=== PATIENT | female | born 1995 | race Caucasian/White ===

== ENCOUNTER 2016-08-22 03:51 | Emergency (ER) | payer OTHER ==
[~2016-08-22] VITALS: Ht 172.7 cm; Wt 65.1 kg
[~2016-08-22 03:51] MED LIST: CIPR500T94 PO; ONDA4TAB10 PO
[2016-08-22] MEDS ORDERED: IV NORMAL SALINE 1,000ML 1,000 ML IV SCH (03:58)
[2016-08-22] MEDS ORDERED: ONDANSETRON PF 4 MG/2 ML VIAL. IV ONE (04:00)
--- NOTE | 2016-08-22 04:02 | PHYS DOC ---
General Chief Complaint: syncope Stated Complaint: NONRESPONSIVE Time Seen by MD: 03:55 Source: patient, EMS, old records Exam Limitations: clinical condition Problems: History of Present Illness Initial Comments Pt is 6mos gestation 21/F to ED via EMS for AMS/syncope. Pt SO states that he left the house shortly before 0300 to go to [employer]. When he left the house he states pt was AOx3 no complaints. When he arrived home he found pt lying on the floor with some emesis as if she'd passed out. Pt has h/o seizure disorder and recurrant syncope which she's been dealing with past two years. EMS reports family noted pt was going to lose consciousness and they lowered her to the floor. EMS reports pt's VSS and she is slowly waking up. Pt mom in ED, she reports pt was diagnosed with UTI and anemia earlier today at her OB, FHT were 147 bpm at that visit. She was prescribed macrobid but has not yet filled the rx. ED VS: afebrile, 92, 17, 119/73, 99% RA Timing/Duration: unsure Severity: severe Modifying Factors: improves with other Associated Symptoms: syncope Allergies: Coded Allergies: No Known Drug Allergies (Unverified , 10/30/14) Past Medical History Medical History: other (seizure, recurrant syncope) Surgical History: noncontributory Psychosocial History: anxiety, attn. deficit disorder, bipolar, depression, post traumatic stress Family History Significant Family History: no pertinent family hx Social History Smoker: cigarettes Alcohol: none Drugs: none Review of Systems Constitutional: denies chills, denies fever, malaise Respiratory: denies cough, denies shortness of breath Cardiovascular: denies chest pain, syncope Gastrointestinal: see HPI nausea vomiting Genitourinary: see HPIdenies frequency, denies hematuria Musculoskeletal: denies back pain, denies joint swelling, denies neck pain Psychiatric/Neurological: see HPI Hematologic/Lymphatic: denies blood clots, denies easy bleeding, denies easy bruising Physical Exam General Appearance: WD/WN, no apparent distress Eyes: bilateral eye EOMI, bilateral eye PERRL, bilateral eye normal inspection Ear, Nose, Throat: hearing grossly normal, normal ENT inspection, normal pharynx Neck: non-tender, supple Respiratory: lungs clear, normal breath sounds Cardiovascular: normal peripheral pulses, regular rate, rhythm Gastrointestinal: normal bowel sounds, soft (gravid c/w dates, no obvious TTP) Rectal: deferred Back: no CVA tenderness, no vertebral tenderness Extremities: normal range of motion, non-tender Neurologic/Psychiatric: burlap spreader II-XII nml as tested, no motor/sensory deficits, other (after waking pt alert, AOx3, flat affect, no SI/HI) Skin: normal color, warm/dry Orders, Labs, Meds Heart Tones 140 bpm EKG: NSR 92 bpm, no acute ischemic changes noted. At 0430 pt received 0.4mg narcan IV. At 0432 RN states pt began to wake up and talk with her family. Almost immediately after waking pt AOx3 no lateralizing neurodefs. 0520: Pt mom reports pt appears to be unresponsive again. Pt protecting her airway once again unresponsive. Will repeat narcan 0.4mg IV. Rocephin 1g IV given KCL 20 meq PO and slomag 64 PO given Pertinent labs: WBC 8.8, Hb 9.1, MCV 76, K+ 3.3 (KCL 20meq given), Mg 1.6, Alb 2.5, corrected calcium 9.6, UA few SE/1-4 WBC/Tr LE, etoh <10 0603: I discussed inpatient treatment and transfer to OP with her OB Dr Milagro Gonzalez. Pt requests d/c home, will f/u with her OB upon opening in a few hours. She will not be alone, states she feels better/normal. IMPRESSIONS: Recurrant seizure/syncope Microcytic anemia Hypomagnesemia Moderate Malnutrition UTI Hypokalemia incidental Departure Time of Disposition: 06:04 Disposition: 01 HOME, SELF-CARE Diagnosis: syncope, hypokalemia, anemia, UTI Condition: IMPROVED Patient Instructions: Anemia, FAQs, Hypokalemia-Brief, Syncope, Gexm-vd-Kuni Additional Instructions: Rest, no strenuous activity. Take meds as prescribed. Aggressive hydration with gatorade, water. Stay with another adult or have someone check on you frequently. No driving or operating machinery. Call Dr Gonzalez office upon opening to schedule same day evaluation later today. Return to ED with new or changing symptoms. NIKO NASH DO Aug 22, 2016 04:02
[2016-08-22] MEDS ORDERED: NALOXONE 0.4 MG/ML VIAL. IV ONE ×2 (04:30→05:30)
[2016-08-22 05:25] LABS: BASO % 0 % (0-3); EOS # 0.1 x10^3/uL (0.0-0.7); EOS % 1 % (0-3); HEMATOCRIT 28.9 % (36.0-47.0); HEMOGLOBIN 9.1 g/dL (12.0-15.5); LYMPH % 22 % (24-48); MEAN CORPUSCULAR HEMOGLOBIN 24 pg (25-35); MEAN CORPUSCULAR HGB CONC 32 g/dL (31-37); MEAN CORPUSCULAR VOLUME 76 fL (79-100); MONO # 0.6 x10^3/uL (0.0-1.1); MONO % 7 % (0-9); NEUT # 6.1 x10^3uL (1.8-7.7); NEUT % 70 % (31-73); PLATELET COUNT 346 x10^3/uL (140-400); WHITE BLOOD COUNT 8.8 x10^3/uL (4.0-11.0)
[2016-08-22 05:27] LABS: ALBUMIN 2.5 g/dL (3.4-5.0); CALCIUM 8.4 mg/dL (8.5-10.1); CREATININE 0.5 mg/dL (0.6-1.0); DIRECT BILIRUBIN 0.1 mg/dL (0.0-0.2); GFR 157.3; MAGNESIUM 1.6 mg/dL (1.8-2.4); POTASSIUM 3.3 mmol/L (3.5-5.1); TOTAL BILIRUBIN 0.2 mg/dL (0.2-1.0); TOTAL PROTEIN 6.6 g/dL (6.4-8.2)
[2016-08-22 05:30] LABS: BARBITURATES NEG (NEG); BENZODIAZEPINES NEG (NEG); CANNABINOIDS NEG (NEG); COCAINE NEG (NEG); METHADONE NEG (NEG); OPIATES NEG (NEG); PHENCYCLIDINE NEG (NEG)
[2016-08-22 05:31] LABS: BILIRUBIN,URINE NEG (NEG); CLARITY,URINE HAZY; COLOR,URINE STRAW; GLUCOSE,URINE NEG (NEG); UROBILINOGEN,URINE 0.2 mg/dL (0.2 mg/dL)
[2016-08-22 05:32] LABS: BACTERIA,URINE MOD /HPF (0-FEW); NITRITE,URINE NEG (NEG); RBC,URINE 0 /HPF (0-2); SQUAMOUS EPITHELIAL CELL,UR FEW /LPF
[2016-08-22 05:38] LABS: AMPHETAMINE/METHAMPHETAMINE NEG (NEG)
[2016-08-22] MEDS ORDERED: IV NORMAL SALINE 50ML 50 ML ONE (05:44)
[2016-08-22] MEDS ORDERED: CEFTRIAXONE SODIUM 1 GM VIAL IV ONE (05:44)
[2016-08-22] MEDS ORDERED: CEFTRIAXONE SODIUM 1 GM in IV NORMAL SALINE 50ML 50 ML IV ONE (05:45)
[2016-08-22] MEDS ORDERED: POTASSIUM CHLORIDE 20 MEQ/15 ML ORAL LIQUID. PO ONE (05:45)
[2016-08-22 05:52] VITALS: BP 109/66
[2016-08-22] MEDS ORDERED: PHEN-318 PO (06:36)
[2016-08-22] MEDS ORDERED: PHENAZOPYRIDINE 200 MG TABLET. ONE (06:37)
[2016-08-22] MEDS ORDERED: PHENAZOPYRIDINE 200 MG TABLET. PO ONE (06:45)
[2016-08-22] MEDS ORDERED: MAGNESIUM CHLORIDE ER 64 MG TABLET.ER PO SCH (09:00)
--- NOTE | 2016-08-22 10:28 | EKG ---
[address] [address] Test Date: 2016-08-22 Test Time: 04:06:57 Pat Name: BANG PARKER Department: Room: Gender: F Director Of Medical Education: DAVID : 1995 Requested By: NIKO NASH Order Number: [id number] Reading MD: Measurements Intervals [place] Rate: 92 P: 34 MN: 174 QRS: 70 QRSD: 82 T: 44 QT: 340 QTc: 425 Interpretive Statements SINUS RHYTHM NO SPECIFIC ECG ABNORMALITIES RI6.01 Unconfirmed report No previous ECG available for comparison
== END 2016-08-22 06:47 | disposition home or self-care (01) ==
LOC: ER 03:51
DX: O26.892 Other specified pregnancy related conditions, second trimester (principal); G40.909 Epilepsy, unspecified, not intractable, without status epilepticus; R55 Syncope and collapse; D50.9 Iron deficiency anemia, unspecified; E83.42 Hypomagnesemia; N39.0 Urinary tract infection, site not specified; E44.0 Moderate protein-calorie malnutrition; E87.6 Hypokalemia; F31.9 Bipolar disorder, unspecified; F32.9 Major depressive disorder, single episode, unspecified; F41.9 Anxiety disorder, unspecified; F43.10 Post-traumatic stress disorder, unspecified; F17.210 Nicotine dependence, cigarettes, uncomplicated; Z3A.24 24 weeks gestation of pregnancy
CPT/HCPCS: 36415; 51702; 80048; 80076; 80305; 80320; 81001; 82550; 83605; 83735; 84484; 84702; 85027; 87086; 93005; 96361; 96365; 96375; 99285; J0696; J2310; J2405; G0480; G0481; J7030

== ENCOUNTER 2016-12-17 11:06 | Emergency (ER) | payer OTHER ==
[~2016-12-17] VITALS: Ht 165.1 cm; Wt 63.5 kg
[~2016-12-17 11:06] MED LIST changes: +PHEN-318 PO
[2016-12-17 11:33] LABS: BASO % 1 % (0-3); CREATININE 0.9 mg/dL (0.6-1.0); EOS # 0.1 x10^3/uL (0.0-0.7); EOS % 1 % (0-3); GFR 79.8; HEMATOCRIT 36.8 % (36.0-47.0); HEMOGLOBIN 11.3 g/dL (12.0-15.5); LYMPH # 1.6 x10^3/uL (1.0-4.8); LYMPH % 19 % (24-48); MEAN CORPUSCULAR HEMOGLOBIN 23 pg (25-35); MEAN CORPUSCULAR HGB CONC 31 g/dL (31-37); MEAN CORPUSCULAR VOLUME 74 fL (79-100); MONO # 0.3 x10^3/uL (0.0-1.1); MONO % 4 % (0-9); NEUT # 6.2 x10^3uL (1.8-7.7); NEUT % 76 % (31-73); PLATELET COUNT 317 x10^3/uL (140-400); POTASSIUM 3.7 mmol/L (3.5-5.1); RED BLOOD COUNT 4.98 x10^6/uL (3.50-5.40); WHITE BLOOD COUNT 8.2 x10^3/uL (4.0-11.0)
[2016-12-17] MEDS ORDERED: IV NORMAL SALINE 1,000 ML BAG IV ONE (12:00)
[2016-12-17] MEDS ORDERED: ONDANSETRON PF 4 MG/2 ML VIAL. IV ONE (12:00)
[2016-12-17] MEDS ORDERED: MORPHINE SULFATE 2 MG/ML DISP.SYRIN. IV ONE (12:10)
[2016-12-17 12:30] LABS: ANISOCYTOSIS SLIGHT; HYPOCHROMIA SLIGHT; MICROCYTOSIS SLIGHT; PLT ESTIMATE ADEQUATE (ADEQUATE)
--- NOTE | 2016-12-17 14:02 | RAD ---
EXAM: Pelvic ultrasound. HISTORY: Pelvic pain and vaginal bleeding. 8 weeks . COMPARISON: None. FINDINGS: Sonographic evaluation of the pelvis was performed transabdominally and transvaginally. The uterus is anteverted and measures 11.7 x 5.6 x 4.2 cm. The endometrial stripe measures only 4.5 mm. No endometrial mass is identified. Doppler images of the endometrium are not included. The right ovary measures 3.9 x 3.8 x 2.3 cm. The left measures 4.4 x 2.9 x 2.9 cm. There are follicular cysts bilaterally. There is normal flow bilaterally. IMPRESSION: 1. No endometrial mass or thickening is appreciable. Doppler of the endometrium could increase sensitivity for retained products of conception if there is persistent concern.
--- NOTE | 2016-12-17 14:32 | PHYS DOC ---
Past History Past Medical History: Asthma, Hypotension, Seizure Past Surgical History: Other Smoking: Non-smoker Alcohol Use: None Drug Use: Marijuana Adult General Chief Complaint Chief Complaint: MULTIPLE COMPLAINTS HPI HPI Patient is a 21 year old F who presents with abdominal pain and vaginal bleeding after having had a vaginal delivery 8 weeks ago. Yamilet states that she has had intermittent bleeding since delivery. She also describes abdominal cramping since delivery. She states that after delivery her hemoglobin was 5.5. Transfusion was discussed at that time however she was not transfused. She has been taking iron regularly. She also does have a seizure disorder for which she was prescribed Keppra. She was initially started on Keppra just prior to delivery. She has not seen a neurologist since starting Keppra. She has also not followed up with her OB because she was unable to make her 6 week appointment. Review of Systems Review of Systems Constitutional: Denies fever or chills [] Eyes: Denies change in visual acuity, redness, or eye pain [] HENT: Denies nasal congestion or sore throat [] Respiratory: Denies cough or shortness of breath [] Cardiovascular: No additional information not addressed in HPI [] GI: Denies abdominal pain, nausea, vomiting, bloody stools or diarrhea [] : Denies dysuria or hematuria [] Musculoskeletal: Denies back pain or joint pain [] Integument: Denies rash or skin lesions [] Neurologic: Denies headache, focal weakness or sensory changes [] Endocrine: Denies polyuria or polydipsia [] Family History Family History Noncontributory Current Medications Current Medications Medications (Trade) Dose Ordered Sig/[facility] Start Time Stop Time Status Last Admin Dose Admin Morphine Sulfate (Morphine 2mg Syringe) 2 mg 1X ONCE 12/17/16 12:10 12/17/16 12:10 DC 12/17/16 11:47 2 MG Ondansetron HCl (Zofran) 4 mg 1X ONCE 12/17/16 12:00 12/17/16 12:01 DC 12/17/16 11:47 4 MG Sodium Chloride (Iv Sodium Chloride 0.9% 1,000ml) 1,000 ml 1X ONCE 12/17/16 12:00 12/17/16 12:01 DC 12/17/16 11:46 1,000 ML Allergies Allergies Coded Allergies Type Severity Reaction Last Updated Verified No Known Drug Allergies 10/30/14 No Physical Exam Physical Exam Constitutional: Well developed, well nourished, no acute distress, non-toxic appearance. [] HENT: Normocephalic, atraumatic, bilateral external ears normal, oropharynx moist, no oral exudates, nose normal. [] Eyes: PERRLA, EOMI, conjunctiva normal, no discharge. [] Neck: Normal range of motion, no tenderness, supple, no stridor. [] Cardiovascular:Heart rate regular rhythm, no murmur [] Lungs & Thorax: Bilateral breath sounds clear to auscultation [] Abdomen: Bowel sounds normal, soft, no tenderness, no masses, no pulsatile masses. [] Skin: Warm, dry, no erythema, no rash. [] Back: No tenderness, no CVA tenderness. [] Extremities: No tenderness, no cyanosis, no clubbing, ROM intact, no edema. [] Neurologic: Alert and oriented X 3, normal motor function, normal sensory function, no focal deficits noted. [] Psychologic: Affect normal, judgement normal, mood normal. [] Current Patient Data Vital Signs Vital Signs Date Time Temp Pulse Resp B/P (MAP) Pulse Ox O2 Delivery O2 Flow Rate FiO2 12/17/16 14:10 58 20 84/47 (59) 95 Room Air 12/17/16 11:06 98.7 Lab Results Laboratory Tests Test 12/17/16 11:10 White Blood Count 8.2 x10^3/uL (4.0-11.0) Red Blood Count 4.98 x10^6/uL (3.50-5.40) Hemoglobin 11.3 g/dL (12.0-15.5) L Hematocrit 36.8 % (36.0-47.0) Mean Corpuscular Volume 74 fL (79-100) L Mean Corpuscular Hemoglobin 23 pg (25-35) L Mean Corpuscular Hemoglobin Concent 31 g/dL (31-37) Red Cell Distribution Width 19.0 % (11.5-14.5) H Platelet Count 317 x10^3/uL (140-400) Neutrophils (%) (Auto) 76 % (31-73) H Lymphocytes (%) (Auto) 19 % (24-48) L Monocytes (%) (Auto) 4 % (0-9) Eosinophils (%) (Auto) 1 % (0-3) Basophils (%) (Auto) 1 % (0-3) Neutrophils # (Auto) 6.2 x10^3uL (1.8-7.7) Lymphocytes # (Auto) 1.6 x10^3/uL (1.0-4.8) Monocytes # (Auto) 0.3 x10^3/uL (0.0-1.1) Eosinophils # (Auto) 0.1 x10^3/uL (0.0-0.7) Basophils # (Auto) 0.0 x10^3/uL (0.0-0.2) Platelet Estimate Adequate (ADEQUATE) Hypochromasia Slight Anisocytosis Slight Microcytosis Slight Sodium Level 142 mmol/L (136-145) Potassium Level 3.7 mmol/L (3.5-5.1) Chloride Level 106 mmol/L (98-107) Carbon Dioxide Level 26 mmol/L (21-32) Anion Gap 10 (6-14) Blood Urea Nitrogen 11 mg/dL (7-20) Creatinine 0.9 mg/dL (0.6-1.0) Estimated GFR (Cockcroft-Gault) 79.8 Glucose Level 88 mg/dL (70-99) Calcium Level 9.0 mg/dL (8.5-10.1) Radiology/Procedures Radiology/Procedures Ultrasound PELVIS Impressions: Radiology report reviewed No endometrial mass or thickening is appreciated. No signs of retained products of conception. Course & Med Decision Making Course & Med Decision Making Pertinent Labs and Imaging studies reviewed. (See chart for details) Dragon Disclaimer Dragon Disclaimer This chart was dictated in whole or in part using Voice Recognition software in a busy, high-work load, and often noisy Emergency Department environment. It may contain unintended and wholly unrecognized errors or omissions. Departure Departure: Impression: Primary Impression: Abdominal pain Disposition: 01 HOME, SELF-CARE Condition: STABLE Referrals: ABHI GUILLEN APRN (PCP) Patient Instructions: Abdominal Pain Additional Instructions: Yamilet was seen in the ED for abdominal pain and vaginal bleeding 8weeks out from vaginal delivery. No emergency medical condition was found during the history and physical exam. She did have normal labs and a normal US. She was advised to follow up with her primary care doctor as soon as possible for further management Problem Qualifiers Primary Impression: Abdominal pain Abdominal location: unspecified location Qualified Codes: R10.9 - Unspecified abdominal pain MELO MICHELLE MD Dec 17, 2016 14:32
[2016-12-17] MEDS ORDERED: IV NORMAL SALINE 1,000ML 1,000 ML IV ONE (14:45)
[2016-12-17 15:30] VITALS: BP 94/46
== END 2016-12-17 16:00 | disposition home or self-care (01) ==
LOC: ER 11:06
DX: R10.9 Unspecified abdominal pain (principal); N93.9 Abnormal uterine and vaginal bleeding, unspecified; J45.909 Unspecified asthma, uncomplicated; F12.10 Cannabis abuse, uncomplicated
CPT/HCPCS: 36415; 76830; 76856; 80048; 85008; 85027; 96361; 96374; 96375; 99285; J2270; J2405; J7030

== ENCOUNTER 2017-01-27 14:00 | Emergency (ER) | payer OTHER ==
[~2017-01-27] VITALS: Ht 165.1 cm; Wt 65.1 kg
[2017-01-27] MEDS ORDERED: FLUT12AE IH (14:36)
[2017-01-27] MEDS ORDERED: FLUT9.9S NS (14:36)
--- NOTE | 2017-01-27 14:36 | PHYS DOC ---
Past History Past Medical History: Asthma, Hypotension, Seizure Past Surgical History: Other Smoking: Non-smoker Alcohol Use: None Drug Use: Marijuana Adult General Chief Complaint Chief Complaint: COUGH HPI HPI Patient is a 21 year old F who presents with cough and nasal congestion over the past 2-3 days. Yamilet feels that she has had constant cough that is occasionally productive and associated with moderate nasal congestion and postnasal drip. She denies fevers but does feel that she has had some chills. She has had 1 coughing spell that resulted in vomiting. She has no exacerbating or alleviating factors. Review of Systems Review of Systems Constitutional: Negative except history of present illness Eyes: Denies change in visual acuity, redness, or eye pain [] HENT: Negative except history of present illness Respiratory: Denies shortness of breath [] Cardiovascular: No additional information not addressed in HPI [] GI: Denies abdominal pain, nausea, vomiting, bloody stools or diarrhea [] : Denies dysuria or hematuria [] Musculoskeletal: Denies back pain or joint pain [] Integument: Denies rash or skin lesions [] Neurologic: Denies headache, focal weakness or sensory changes [] Endocrine: Denies polyuria or polydipsia [] Family History Family History Noncontributory Current Medications Current Medications Medications reviewed Allergies Allergies Allergies Coded Allergies Type Severity Reaction Last Updated Verified No Known Drug Allergies 10/30/14 No Physical Exam Physical Exam Constitutional: Well developed, well nourished, no acute distress, non-toxic appearance. [] HENT: Normocephalic, atraumatic, bilateral external ears normal, moderate bilateral nasal congestion with mild mucous noted Eyes: PERRLA, EOMI, conjunctiva normal, no discharge. [] Neck: Normal range of motion, no tenderness, supple, no stridor. [] Cardiovascular:Heart rate regular rhythm, no murmur [] Lungs & Thorax: Bilateral breath sounds clear to auscultation [] Abdomen: Bowel sounds normal, soft, no tenderness, no masses, no pulsatile masses. [] Skin: Warm, dry, no erythema, no rash. [] Neurologic: Alert and oriented X 3, normal motor function, normal sensory function, no focal deficits noted. [] Psychologic: Affect normal, judgement normal, mood normal. [] Current Patient Data Vital Signs Vital Signs Date Time Temp Pulse Resp B/P (MAP) Pulse Ox O2 Delivery O2 Flow Rate FiO2 01/27/17 14:00 98.6 103 18 97 Room Air Radiology/Procedures Radiology/Procedures Chest x-ray Impressions: No acute disease Course & Med Decision Making Course & Med Decision Making Pertinent Labs and Imaging studies reviewed. (See chart for details) Dragon Disclaimer Dragon Disclaimer This chart was dictated in whole or in part using Voice Recognition software in a busy, high-work load, and often noisy Emergency Department environment. It may contain unintended and wholly unrecognized errors or omissions. Departure Departure: Impression: Primary Impression: Bronchitis Additional Impression: Upper respiratory infection Disposition: HOME, SELF-CARE Condition: STABLE Referrals: PCP,NO (PCP) Patient Instructions: Acute Bronchitis, Upper Respiratory Infection, Adult Additional Instructions: Jazmyne seen in the emergency department for nasal congestion and cough. No emergency medical condition was found on history or physical exam. She did have a normal chest x-ray. Her symptoms are most consistent with bronchitis and upper extremity infection. She was advised to use nasal saline rinses regularly and was given a nasal steroids. She was also given an inhaled steroid. She was advised to follow-up with her primary care doctor in the next 5-7 days for further management. She was also advised return to the emergency room if she develops now worsening symptoms Scripts Fluticasone Propionate (FLOVENT 110MCG HFA) 12 Gm Aer.w.adap 2 PUFF IH BID for 7 Days, #1 INHALER 2 Refills Prov: MELO MICHELLE MD 01/27/17 Fluticasone Propionate (Flonase Allergy Relief) 9.9 Ml [place].susp 1 SPRAYS NS BID for 7 Days, BOTTLE Prov: MELO MICHELLE MD 01/27/17 Problem Qualifiers Additional Impression: Upper respiratory infection URI type: unspecified viral URI Qualified Codes: J06.9 - Acute upper respiratory infection, unspecified; B97.89 - Other viral agents as the cause of diseases classified elsewhere MELO MICHELLE MD Jan 27, 2017 14:36
--- NOTE | 2017-01-27 14:47 | RAD ---
Exam performed: 2 views of the chest. Indication: cough Date of Service:01/27/2017 4:28 PM . Comparison : 2 view chest from December 14 Findings: PA and lateral radiographs of the chest reveal a normal cardiomediastinal contour. The lungs are clear. No pleural fluid is seen. The visualized osseous structures are unremarkable. Impression: Radiographically normal chest.
[2017-01-27 15:09] VITALS: BP 124/64
== END 2017-01-27 15:00 | disposition home or self-care (01) ==
LOC: ER 14:00
DX: J06.9 Acute upper respiratory infection, unspecified (principal); J40 Bronchitis, not specified as acute or chronic; J45.909 Unspecified asthma, uncomplicated
CPT/HCPCS: 71020; 99284

== ENCOUNTER 2017-02-14 19:14 | Emergency (ER) | payer OTHER ==
[~2017-02-14 19:14] MED LIST changes: +FLUT12AE IH; +FLUT9.9S NS
[2017-02-14 19:17] VITALS: BP 105/61
[2017-02-14] MEDS ORDERED: HYDROcodone/APAP 5/325MG 1 TAB TABLET PO ONE (19:30)
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
[2017-02-14] MEDS ORDERED: HYDR-2758 PO (21:46)
[2017-02-14] MEDS ORDERED: NAPR275T59 PO (21:46)
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
== END 2017-02-14 21:50 | disposition home or self-care (01) ==
LOC: ER 19:14
DX: S00.03XA Contusion of scalp, initial encounter (principal); S00.83XA Contusion of other part of head, initial encounter; S10.93XA Contusion of unspecified part of neck, initial encounter; S20.211A Contusion of right front wall of thorax, initial encounter; S39.92XA Unspecified injury of lower back, initial encounter; J45.909 Unspecified asthma, uncomplicated; Y04.0XXA Assault by unarmed brawl or fight, initial encounter; Y93.89 Activity, other specified; Y92.89 Other specified places as the place of occurrence of the external cause; Y99.8 Other external cause status
CPT/HCPCS: 70450; 70486; 71101; 72100; 99284-25

== ENCOUNTER 2017-04-25 18:56 | Emergency (ER) | payer OTHER ==
[~2017-04-25] VITALS: Ht 165.1 cm; Wt 65.1 kg
[2017-04-25 18:56] VITALS: BP 99/51
[~2017-04-25 18:56] MED LIST changes: +HYDR-2758 PO; +NAPR275T59 PO
--- NOTE | 2017-04-25 19:29 | ED.ADGEN ---
Past History Past Medical History: No Pertinent History, Other Past Surgical History: No Surgical History Smoking: Non-smoker Alcohol Use: Occasionally Drug Use: None Adult General Chief Complaint Chief Complaint " It go caught in the freeze door.." HPI HPI Patient is a 21 year old female who presents with above hx and complaints of crush type injury to right fifth finger after caught in doorjamb of freezer door. Does have a contusion to finger. There is edema. Does have range of motion. Range of motion does elicit pain. Distal neurovascular intact. No other injury to hand noted. Patient is right-hand dominant. Patient works at [employer]. Review of Systems Review of Systems Constitutional: Denies fever or chills [] Eyes: Denies change in visual acuity, redness, or eye pain [] HENT: Denies nasal congestion or sore throat [] Respiratory: Denies cough or shortness of breath [] Cardiovascular: No additional information not addressed in HPI [] GI: Denies abdominal pain, nausea, vomiting, bloody stools or diarrhea [] : Denies dysuria or hematuria [] Musculoskeletal: Denies back pain or joint pain []right fifth finger injury Integument: Denies rash or skin lesions [] Neurologic: Denies headache, focal weakness or sensory changes [] Endocrine: Denies polyuria or polydipsia [] All other systems were reviewed and found to be within normal limits, except as documented in this note. Family History Family History Noncontributory Current Medications Current Medications Current Medications Medications (Trade) Dose Ordered Sig/[facility] Start Time Stop Time Status Last Admin Dose Admin Ibuprofen (Motrin) 600 mg 1X ONCE 04/25/17 20:15 04/25/17 20:15 DC 04/25/17 20:06 600 MG See nursing for home meds Allergies Allergies Allergies Coded Allergies Type Severity Reaction Last Updated Verified No Known Drug Allergies 10/30/14 No Physical Exam Physical Exam Constitutional: Well developed, well nourished, moderate distress, non-toxic appearance. [] HENT: Normocephalic, atraumatic, bilateral external ears normal, oropharynx moist, no oral exudates, nose normal. [] Eyes: PERRLA, EOMI, conjunctiva normal, no discharge. [] Neck: Normal range of motion, no tenderness, supple, no stridor. [] Cardiovascular:Heart rate regular rhythm, no murmur [] Lungs & Thorax: Bilateral breath sounds equal at apexes with scattered wheezes auscultation [] Abdomen: Bowel sounds normal, soft, no tenderness, no masses, no pulsatile masses. [] Skin: Warm, dry, no erythema, no rash. [] Back: No tenderness, no CVA tenderness. [] Extremities: No tenderness, no cyanosis, no clubbing, ROM intact, no edema. [] Fifth finger as per history of present illness Neurologic: Alert and oriented X 3, normal motor function, normal sensory function, no focal deficits noted. [] Psychologic: Affect anxious,, judgement normal, mood normal. [] Current Patient Data Vital Signs Vital Signs Date Time Temp Pulse Resp B/P (MAP) Pulse Ox O2 Delivery O2 Flow Rate FiO2 04/25/17 18:56 99.0 95 16 100 Room Air Lab Results Laboratory Tests Test 04/25/17 20:39 POC Urine HCG, Qualitative hcg negative (Negative) EKG EKG [] Radiology/Procedures Radiology/Procedures I interpretation x-ray shows edema of finger. No obvious dislocation or displaced fracture.[] Course & Med Decision Making Course & Med Decision Making Pertinent Labs and Imaging studies reviewed. (See chart for details). Bernardo tape finger as splint to 4th finger. Ice, elevation, rest, and Tylenol and ibuprofen for pain. Must keep follow-up workmen comp. Return if any concerns. [] Final Impression Final Impression 1. Finger[] 5th Rt. Crush Injury Problems: Dragon Disclaimer Dragon Disclaimer This electronic medical record was generated, in whole or in part, using a voice recognition dictation system. EMILIA MASCORRO MD Apr 25, 2017 19:29
[2017-04-25] MEDS ORDERED: IBUPROFEN 600 MG TABLET. PO ONE (20:15)
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
== END 2017-04-25 20:10 | disposition home or self-care (01) ==
LOC: ER 18:56
DX: S60.051A Contusion of right little finger without damage to nail, initial encounter (principal); W23.0XXA Caught, crushed, jammed, or pinched between moving objects, initial encounter; Y93.89 Activity, other specified; Y99.8 Other external cause status; Y92.89 Other specified places as the place of occurrence of the external cause
CPT/HCPCS: 73130; 81025; 99284

== ENCOUNTER 2017-07-07 15:36 | Emergency (ER) | payer OTHER ==
[2017-07-07 15:45] VITALS: BP 107/59
--- NOTE | 2017-07-07 16:21 | PHYS DOC ---
Past History Past Medical History: No Pertinent History Past Surgical History: No Surgical History Smoking: Non-smoker Alcohol Use: None Drug Use: None Adult General Chief Complaint Chief Complaint: FLU SYMPTOM HPI HPI Patient is a 21 year old female who presents with with complaint of cough and nasal congestion over the past 3 days. The patient states that her child had similar symptoms prior to her onset. Patient states that her child was treated for an upper respiratory infection. Patient states that her cough is worse in the morning and before bedtime. Patient has been using [id number] cough medication with no improvement in symptoms. Patient states that she has noticed increased hoarseness to her voice. Patient denies any difficulty with swallowing and denies any shortness of breath. The patient was sent home from her place of work due to her symptoms. The patient states that she was unable to obtain an appointment from her primary doctor and she was instructed to come to the emergency department for medical evaluation. Review of Systems Review of Systems Constitutional: Chills[] Eyes: Denies change in visual acuity, redness, or eye pain [] HENT: Nasal congestion, sore throat[] Respiratory: Cough, denies shortness of breath[] Cardiovascular: Denies chest pain or edema[] GI: Denies abdominal pain, nausea, vomiting, bloody stools or diarrhea [] : Denies dysuria or hematuria [] Musculoskeletal: Denies back pain or joint pain [] Integument: Denies rash or skin lesions [] Neurologic: Denies headache, focal weakness or sensory changes [] All other systems were reviewed and found to be within normal limits, except as documented in this note. Allergies Allergies Allergies Coded Allergies Type Severity Reaction Last Updated Verified No Known Drug Allergies 10/30/14 No Physical Exam Physical Exam Constitutional: Alert, afebrile, appears in mild discomfort. [] HENT: Normocephalic, atraumatic, bilateral external ears normal, oropharynx moist, no oral exudates, nose thick rhinorrhea. [] Eyes: PERRLA, EOMI, conjunctiva normal, no discharge. [] Neck: Normal range of motion, no tenderness, supple, no stridor. [] Cardiovascular:Heart rate regular rhythm, no murmur [] Lungs & Thorax: Bilateral breath sounds clear to auscultation [] Abdomen: Bowel sounds normal, soft, no tenderness, no masses, no pulsatile masses. [] Skin: Warm, dry, no erythema, no rash. [] Back: No tenderness, no CVA tenderness. [] Extremities: No tenderness, no cyanosis, no clubbing, ROM intact, no edema. [] Neurologic: Alert and oriented X 3, normal motor function, normal sensory function, no focal deficits noted. [] Current Patient Data Vital Signs Vital Signs Date Time Temp Pulse Resp B/P (MAP) Pulse Ox O2 Delivery O2 Flow Rate FiO2 07/07/17 15:45 97.6 94 18 98 Room Air Lab Results Not performed EKG EKG Not performed[] Radiology/Procedures Radiology/Procedures Not performed[] Course & Med Decision Making Course & Med Decision Making Pertinent Labs and Imaging studies reviewed. (See chart for details) The patient's symptoms appear consistent with an upper respiratory infection. Patient was provided with a work note and instructed to rest, hydrate, and use warm moist air to help with congestion as well as humidifier at nighttime. Advised to continue with Mucinex D [id number] for treatment of cough and ibuprofen [id number] for treatment of sore throat. Advised follow-up with primary doctor in 2 days for reevaluation and return emergency department for any worsening symptoms. Patient voiced understanding and in agreement with treatment plan. Dragon Disclaimer Dragon Disclaimer This electronic medical record was generated, in whole or in part, using a voice recognition dictation system. Departure Departure: Impression: Primary Impression: Upper respiratory infection Disposition: HOME, SELF-CARE Condition: STABLE Referrals: ABHI GUILLEN APRN (PCP) Patient Instructions: Upper Respiratory Infection, Adult Additional Instructions: Follow-up with your primary doctor in 2 days for reevaluation. Return to emergency department for any worsening symptoms. Problem Qualifiers Primary Impression: Upper respiratory infection URI type: unspecified URI Qualified Codes: J06.9 - Acute upper respiratory infection, unspecified COURT OLSEN MD Jul 07, 2017 16:20
== END 2017-07-07 16:24 | disposition home or self-care (01) ==
LOC: ER 15:36
DX: J06.9 Acute upper respiratory infection, unspecified (principal)
CPT/HCPCS: 99281

== ENCOUNTER 2017-07-20 22:45 | Emergency (ER) | payer OTHER ==
[~2017-07-20] VITALS: Ht 165.1 cm; Wt 65.1 kg
[2017-07-20 22:45] VITALS: BP 121/51
--- NOTE | 2017-07-20 22:52 | ED.ADGEN ---
Past History Past Medical History: No Pertinent History Past Surgical History: No Surgical History Smoking: Non-smoker Alcohol Use: None Drug Use: None Adult General Chief Complaint Chief Complaint " I twisted my Rt. ankle walking home... It inverted .. and now it hurts.. and I also I have anxiety. disorder.. and I ve had this constant sternal pain the past two weeks..." HPI HPI Patient is a 21 year old female who presents with above complaints of pain in Rt ankle after inversion walking home. No upper leg tenderness. No other injury. Distal neurovascular intact. Pain localized to malleolus bilaterally. Some anterior drawer laxity. Patient's chest pain is midsternal and has been constant for more than 2 weeks. No change in deep breaths or cough. Patient does smoke. Patient reports history of anxiety disorder. Patient denies any history of DVTs or pulmonary embolisms with her family members. Patient denies any trauma. Review of Systems Review of Systems Constitutional: Denies fever or chills [] Eyes: Denies change in visual acuity, redness, or eye pain [] HENT: Denies nasal congestion or sore throat [] Respiratory: Denies cough or shortness of breath [] Cardiovascular: No additional information not addressed in HPI [] GI: Denies abdominal pain, nausea, vomiting, bloody stools or diarrhea [] : Denies dysuria or hematuria [] Musculoskeletal: Denies back pain or joint pain []except complaints of right ankle pain Integument: Denies rash or skin lesions [] Neurologic: Denies headache, focal weakness or sensory changes [] Endocrine: Denies polyuria or polydipsia [] All other systems were reviewed and found to be within normal limits, except as documented in this note. Family History Family History Noncontributory Current Medications Current Medications Current Medications Medications (Trade) Dose Ordered Sig/Reynaldo Start Time Stop Time Status Last Admin Dose Admin Hydrocodone Bitartrate/ Ibuprofen (Vicoprofen 7.5-200) 2 tab 1X ONCE 07/20/17 23:30 07/20/17 23:31 DC 07/20/17 23:30 2 TAB Oxycodone/ Acetaminophen (Percocet 10/325) 1 tab 1X ONCE 07/20/17 23:45 07/20/17 23:46 DC 07/20/17 23:45 1 TAB See nursing for home meds Allergies Allergies Allergies Coded Allergies Type Severity Reaction Last Updated Verified No Known Drug Allergies 10/30/14 No Physical Exam Physical Exam Constitutional: Well developed, well nourished, moderately acute distress, non- toxic appearance. [] HENT: Normocephalic, atraumatic, bilateral external ears normal, oropharynx moist, no oral exudates, nose normal. [] Eyes: PERRLA, EOMI, conjunctiva normal, no discharge. [] Neck: Normal range of motion, no tenderness, supple, no stridor. [] Cardiovascular:Heart rate regular rhythm, no murmur [] Lungs & Thorax: Bilateral breath sounds equal few scattered wheezes on auscultation []mild sternal tenderness on palpation Abdomen: Bowel sounds normal, soft, no tenderness, no masses, no pulsatile masses. [] Skin: Warm, dry, no erythema, no rash. [] Back: No tenderness, no CVA tenderness. [] Extremities: Right ankle tenderness, no cyanosis, no clubbing, ROM intact, right ankle edema. [] No cording in legs noted. No upper leg tenderness. Negative foot squeeze. Mild laxity on anterior drawer,. Refill less than 2 seconds. Neurologic: Alert and oriented X 3, normal motor function, normal sensory function, no focal deficits noted. [] Psychologic: Affect very anxious, judgement normal, mood normal. [] Current Patient Data Lab Results Laboratory Tests Test 07/20/17 23:06 POC Troponin I 0.00 ng/ml (<0.08) EKG EKG My interpretation of EKG shows sinus tachycardia and 15 bpm. No findings acute STEMI of contralateral changes.- ( EKG was done at time of blood draws)[] Monitor prior blood draw= NSR at 70-80 bpm Radiology/Procedures Radiology/Procedures Interpretation of ankle x-ray shows mild edema. No obvious fracture or dislocation.[] Course & Med Decision Making Course & Med Decision Making Pertinent Labs and Imaging studies reviewed. (See chart for details). Ice, elevation, rest, splint, take tylenol and Ibuprofen for pain. Stop smoking. Follow up with primary. Return if any concerns. Re-xray in 2 weeks if no improvement. Distal neurovascular intact after splinting. [] Final Impression Final Impression 1. Sprain Rt ankle 2. Hx of Anxiety 3. Sternal Chest pain[] Problems: Dragon Disclaimer Dragon Disclaimer This electronic medical record was generated, in whole or in part, using a voice recognition dictation system. EMILIA MASCORRO MD Jul 20, 2017 22:52
--- NOTE | 2017-07-20 23:14 | EKG ---
[address] [address] Test Date: 2017-07-20 Test Time: 23:01:44 Pat Name: BANG PARKER Department: Room: Gender: F Tech Intern: : 1995 Requested By: EMILIA MASCORRO Order Number: [id number] Reading MD: Erlin Hanson Measurements Intervals [place] Rate: 115 P: 56 [place]: 162 QRS: 82 QRSD: 90 T: 51 QT: 316 QTc: 439 Interpretive Statements SINUS TACHYCARDIA NONSPECIFIC ST-T WAVE CHANGES. OTHERWISE NORMAL ECG RI6.01 Electronically Signed On 07-21-2017 12:42:03 LAYOUT FORMER by Erlin Hanson
[2017-07-20] MEDS ORDERED: HYDROcodon/IBUPROFEN 7.5/200MG 1 TAB TABLET PO ONE (23:30)
[2017-07-20] MEDS ORDERED: oxyCODONE/APAP 10/325 1 TAB TABLET PO ONE (23:45)
--- NOTE | 2017-07-21 07:37 | RAD ---
Right ankle, 3 views, 07/20/2017: History: Fall, pain No fracture or dislocation is identified. The soft tissues are unremarkable. IMPRESSION: No acute right ankle abnormality is detected.
== END 2017-07-20 23:45 | disposition home or self-care (01) ==
LOC: ER 22:45
DX: S93.401A Sprain of unspecified ligament of right ankle, initial encounter (principal); R07.2 Precordial pain; F41.9 Anxiety disorder, unspecified; X50.1XXA Overexertion from prolonged static or awkward postures, initial encounter; Y93.89 Activity, other specified; Y99.8 Other external cause status; Y92.89 Other specified places as the place of occurrence of the external cause
CPT/HCPCS: 29515; 73610; 84484; 93005; 99284

== ENCOUNTER 2017-10-13 16:20 | Emergency (ER) | payer OTHER ==
[~2017-10-13] VITALS: Ht 167.6 cm; Wt 61.2 kg
--- NOTE | 2017-10-13 16:48 | RAD ---
Chest, 2 views, 10/13/2017: HISTORY: Cough, shortness of breath The heart size is normal. The lungs are clear. There is no evidence of pleural fluid. IMPRESSION: No acute cardiopulmonary abnormality is detected. Electronically signed by: Godwin Chan MD (10/13/2017 4:45 PM) [facility]
[2017-10-13] MEDS ORDERED: ALBU18HF IH (17:04)
--- NOTE | 2017-10-13 17:05 | PHYS DOC ---
Past History Past Medical History: Anemia Past Surgical History: No Surgical History Smoking: Non-smoker Alcohol Use: None Drug Use: None Adult General Chief Complaint Chief Complaint: COUGH HPI HPI 22-year-old female with a cough for one week. She describes it as mildly productive with a white sputum. She has pain when she takes deep breaths in and when she coughs really hard. She reports her kids have been sick as well. She denies any fevers or chills at home but has associated rhinorrhea and mild increased drainage in her eyes bilaterally that is clear. Review of systems is negative for fevers chills neck stiffness vision changes. All other review of systems is negative unless otherwise noted in history of present illness. ED course: 22-year-old female presenting in the emergency department today with cough. She is afebrile here. Saturating well on room air. Breath sounds are clear bilaterally disagreee with cut off sawyer log Hopper on lung exam. not diminished. clear in all lung boogie. Abdomen is soft and nontender. Chest x-ray obtained which was unremarkable for acute pathology. Likely viral URI. We will give the patient albuterol. Probably an acute steroid burst is more likely to cause side effects than alleviated her symptoms so we will not give this at this time.The patient has been examined and was not found to have an emergency medical condition. The patient was then discharged home in stable condition to follow up with their primary care physician over the next 2-3 days. They were to return if their symptoms worsened or if they were concerned for any reason. Face -to-face discharge instructions and return precautions were given. Patient's questions were answered to their satisfaction. Patient is comfortable with plan. Review of Systems Review of Systems SEE ABOVE. Allergies Allergies Allergies Coded Allergies Type Severity Reaction Last Updated Verified No Known Drug Allergies 10/30/14 No Physical Exam Physical Exam SEE ABOVE Constitutional: Well developed, well nourished, no acute distress, non-toxic appearance. HENT: Normocephalic, atraumatic, bilateral external ears normal, oropharynx moist, no oral exudates, nose normal. [] Eyes: PERRLA, EOMI, conjunctiva normal, no discharge. Neck: Normal range of motion, no tenderness, supple, no stridor. [] Cardiovascular:Heart rate regular rhythm, no murmur Lungs & Thorax: Bilateral breath sounds clear to auscultation [] Abdomen: Bowel sounds normal, soft, no tenderness, no masses, no pulsatile masses. Skin: Warm, dry, no erythema, no rash. [] Back: No tenderness, no CVA tenderness. Extremities: No tenderness, no cyanosis, no clubbing, ROM intact, no edema. [] Neurologic: Alert and oriented X 3, normal motor function, normal sensory function, no focal deficits noted. Psychologic: Affect normal, judgement normal, mood normal. [] EKG EKG [] Radiology/Procedures Radiology/Procedures [] Course & Med Decision Making Course & Med Decision Making Pertinent Labs and Imaging studies reviewed. (See chart for details) [] Dragon Disclaimer Dragon Disclaimer This electronic medical record was generated, in whole or in part, using a voice recognition dictation system. Departure Departure: Impression: Primary Impression: Upper respiratory infection Disposition: HOME, SELF-CARE Condition: STABLE Referrals: HELEN HANEY MD (PCP) Patient Instructions: Cough, Adult Additional Instructions: Thank you for allowing us to participate in your care today. Followup with your primary care physician in 3 days if your symptoms do not improve. Call your Primary Doctor tomorrow and inform them of your visit today. If you do not have a primary care provider you can ask for a list of our primary care providers. Return to the emergency department you have any new or concerning findings. This should be evaluated by the primary care physician and any necessary consulting services for continued management within a few days after discharge. Return to emergency room if you have any new or concerning symptoms including but not limited to fever, chills, nausea, vomiting, intractable pain, any new rashes, chest pain, shortness of air, uncontrolled bleeding, difficulty breathing, and/or vision loss. If at any time, you are having difficulty getting into your primary care doctor or a specialist, return to the emergency department. Scripts Albuterol Sulfate (VENTOLIN HFA INHALER) 18 Gm Hfa.aer.ad 1 PUFF IH PRN Q4HRS PRN for FOR ASTHMA, #1 INHALER 0 Refills Prov: JOCELIN ALEXIS MD 10/13/17 JOCELIN ALEXIS MD October 13, 2017 17:05
[2017-10-13 17:18] VITALS: BP 104/65
== END 2017-10-13 17:20 | disposition home or self-care (01) ==
LOC: ER 16:20
DX: J06.9 Acute upper respiratory infection, unspecified (principal); Z86.2 Personal history of diseases of the blood and blood-forming organs and certain disorders involving the immune mechanism
CPT/HCPCS: 71046; 99284

== ENCOUNTER 2018-04-19 12:49 | Emergency (ER) | payer BC, OTHER ==
[~2018-04-19] VITALS: Ht 170.2 cm; Wt 63.5 kg
[~2018-04-19 12:49] MED LIST changes: +ALBU18HF IH
[2018-04-19] MEDS ORDERED: IV NORMAL SALINE 1,000ML 1,000 ML IV SCH (13:24)
[2018-04-19] MEDS ORDERED: ONDANSETRON PF 4 MG/2 ML VIAL. IV ONE (13:30)
[2018-04-19 13:37] LABS: BASO % 0 % (0-3); EOS % 0 % (0-3); HEMATOCRIT 39.9 % (36.0-47.0); HEMOGLOBIN 13.1 g/dL (12.0-15.5); LYMPH # 0.8 x10^3/uL (1.0-4.8); LYMPH % 25 % (24-48); MEAN CORPUSCULAR HEMOGLOBIN 27 pg (25-35); MEAN CORPUSCULAR HGB CONC 33 g/dL (31-37); MEAN CORPUSCULAR VOLUME 82 fL (79-100); MONO # 0.3 x10^3/uL (0.0-1.1); MONO % 8 % (0-9); NEUT % 66 % (31-73); PLATELET COUNT 277 x10^3/uL (140-400); RED BLOOD COUNT 4.87 x10^6/uL (3.50-5.40); RED CELL DISTRIBUTION WIDTH 14.5 % (11.5-14.5); WHITE BLOOD COUNT 3.1 x10^3/uL (4.0-11.0)
[2018-04-19 13:46] LABS: PREG TEST PT QUAL NEGATIVE (NEG)
[2018-04-19 13:51] LABS: ALBUMIN 4.1 g/dL (3.4-5.0); ALBUMIN/GLOBULIN RATIO 1.1 (1.0-1.7); CALCIUM 8.9 mg/dL (8.5-10.1); CREATININE 0.8 mg/dL (0.6-1.0); GFR 90.5; POTASSIUM 3.1 mmol/L (3.5-5.1); TOTAL BILIRUBIN 0.5 mg/dL (0.2-1.0); TOTAL PROTEIN 7.7 g/dL (6.4-8.2)
[2018-04-19] MEDS ORDERED: POTASSIUM CHLORIDE 20 MEQ TABLET.ER. PO ONE (14:30)
[2018-04-19] MEDS ORDERED: KETOROLAC 30 MG/ML VIAL. IV ONE (14:45)
[2018-04-19 15:20] LABS: BILIRUBIN,URINE NEG (NEG); CLARITY,URINE TURBID; COLOR,URINE AMBER; GLUCOSE,URINE NEG (NEG); NITRITE,URINE POS (NEG); UROBILINOGEN,URINE 0.2 mg/dL (0.2 mg/dL)
[2018-04-19 15:22] LABS: BACTERIA,URINE MANY /HPF (0-FEW); SQUAMOUS EPITHELIAL CELL,UR MOD /LPF; WBC,URINE >40 /HPF (0-4); YEAST,URINE PRESENT /HPF
--- NOTE | 2018-04-19 15:23 | PHYS DOC ---
Past History Past Medical History: Anemia, Seizure, Other Past Surgical History: No Surgical History Smoking: Cigarettes Alcohol Use: None Drug Use: None Adult General Chief Complaint Chief Complaint: vaginal bleeding and abdominal pain [facility] HPI Patient is a 22 year old female who presents with complaining of vaginal bleeding and abdominal pain for 4 months. Patient complaining of intermittent episodes of generalized abdominal pain, nausea and vomiting, irregular vaginal bleeding for the last 4 months that usually happen 2 or 3 times a week and vomiting 3 or 4 times a day. Patient states she has irregular menstruation and vaginal bleeding for the last 4 times and sometimes has heavy vaginal bleeding. Patient states she did not seek medical attention for her problem but because she vomited since yesterday decided to come to ER. Patient denies dizziness, fever and chills, urinary symptoms, . Review of Systems Review of Systems Constitutional: Denies fever or chills [] Eyes: Denies change in visual acuity, redness, or eye pain [] HENT: Denies nasal congestion or sore throat [] Respiratory: Denies cough or shortness of breath [] Cardiovascular: No additional information not addressed in HPI [] GI: Reports abdominal pain, nausea, vomiting, denies bloody stools or diarrhea [ ] : Denies dysuria or hematuria [] Musculoskeletal: Denies back pain or joint pain [] Integument: Denies rash or skin lesions [] Neurologic: Denies headache, focal weakness or sensory changes [] Endocrine: Denies polyuria or polydipsia [] All other systems were reviewed and found to be within normal limits, except as documented in this note. Current Medications Current Medications Current Medications Medications (Trade) Dose Ordered Sig/[facility] Start Time Stop Time Status Last Admin Dose Admin Ketorolac Tromethamine (Toradol 30mg Vial) 30 mg 1X ONCE 04/19/18 14:45 04/19/18 14:46 DC 04/19/18 14:32 30 MG Ondansetron HCl (Zofran) 4 mg 1X ONCE 04/19/18 13:30 04/19/18 13:31 DC 04/19/18 13:56 4 MG Potassium Chloride (Klor-Con) 40 meq 1X ONCE 04/19/18 14:30 04/19/18 14:31 DC 04/19/18 14:32 40 MEQ Sodium Chloride 1,000 ml @ 1,000 mls/hr Q1H 04/19/18 13:24 04/19/18 14:23 DC 04/19/18 13:56 1,000 MLS/HR Allergies Allergies Allergies Coded Allergies Type Severity Reaction Last Updated Verified No Known Drug Allergies 10/30/14 No Physical Exam Physical Exam Constitutional: Well developed, well nourished, no acute distress, non-toxic appearance. [] HENT: Normocephalic, atraumatic, oropharynx moist, no oral exudates, nose normal. [] Eyes: PERRLA, EOMI, conjunctiva normal, no discharge. [] Neck: Normal range of motion, no tenderness, supple, no stridor. [] Cardiovascular:Heart rate regular rhythm, no murmur [] Lungs & Thorax: Bilateral breath sounds clear to auscultation [] Abdomen: Bowel sounds normal, soft, no tenderness, no masses, no pulsatile masses. [] Skin: Warm, dry, no erythema, no rash. [] Back: No tenderness, no CVA tenderness. [] Extremities: No tenderness, no cyanosis, no clubbing, ROM intact, no edema. [] Neurologic: Alert and oriented X 3, normal motor function, normal sensory function, no focal deficits noted. [] Psychologic: Affect normal, judgement normal, mood normal. [] Current Patient Data Vital Signs Vital Signs Date Time Temp Pulse Resp B/P (MAP) Pulse Ox O2 Delivery O2 Flow Rate FiO2 04/19/18 13:26 98.7 103 24 99 Room Air Lab Results Laboratory Tests Test 04/19/18 13:20 White Blood Count 3.1 x10^3/uL (4.0-11.0) L Red Blood Count 4.87 x10^6/uL (3.50-5.40) Hemoglobin 13.1 g/dL (12.0-15.5) Hematocrit 39.9 % (36.0-47.0) Mean Corpuscular Volume 82 fL (79-100) Mean Corpuscular Hemoglobin 27 pg (25-35) Mean Corpuscular Hemoglobin Concent 33 g/dL (31-37) Red Cell Distribution Width 14.5 % (11.5-14.5) Platelet Count 277 x10^3/uL (140-400) Neutrophils (%) (Auto) 66 % (31-73) Lymphocytes (%) (Auto) 25 % (24-48) Monocytes (%) (Auto) 8 % (0-9) Eosinophils (%) (Auto) 0 % (0-3) Basophils (%) (Auto) 0 % (0-3) Neutrophils # (Auto) 2.0 x10^3uL (1.8-7.7) Lymphocytes # (Auto) 0.8 x10^3/uL (1.0-4.8) L Monocytes # (Auto) 0.3 x10^3/uL (0.0-1.1) Eosinophils # (Auto) 0.0 x10^3/uL (0.0-0.7) Basophils # (Auto) 0.0 x10^3/uL (0.0-0.2) Sodium Level 140 mmol/L (136-145) Potassium Level 3.1 mmol/L (3.5-5.1) L Chloride Level 102 mmol/L (98-107) Carbon Dioxide Level 26 mmol/L (21-32) Anion Gap 12 (6-14) Blood Urea Nitrogen 11 mg/dL (7-20) Creatinine 0.8 mg/dL (0.6-1.0) Estimated GFR (Cockcroft-Gault) 90.5 BUN/Creatinine Ratio 14 (6-20) Glucose Level 100 mg/dL (70-99) H Calcium Level 8.9 mg/dL (8.5-10.1) Total Bilirubin 0.5 mg/dL (0.2-1.0) Aspartate Amino Transferase (AST) 13 U/L (15-37) L Alanine Aminotransferase (ALT) 18 U/L (14-59) Alkaline Phosphatase 88 U/L (46-116) Total Protein 7.7 g/dL (6.4-8.2) Albumin 4.1 g/dL (3.4-5.0) Albumin/Globulin Ratio 1.1 (1.0-1.7) Lipase 125 U/L (73-393) Serum Test, Qualitative Negative (NEG) EKG EKG [] Radiology/Procedures Radiology/Procedures [] Course & Med Decision Making Course & Med Decision Making Pertinent Labs reviewed. (See chart for details) Evaluation of patient in ER showed 22-year-old female patient with complaining of chronic vaginal bleeding and nausea and vomiting and abdominal pain intermittently. Patient had unremarkable physical exam and labs except for white count of 3.1 and potassium of 3.1 and treated with oral potassium. UA showed UTI and patient treated with Rocephin in ER. Patient did not have anemia or sign of dehydration. Patient instructed to follow-up with her EXEC. CREATIVE DIRECTOR and primary care physician regarding chronic problem. Dragon Disclaimer Dragon Disclaimer This electronic medical record was generated, in whole or in part, using a voice recognition dictation system. Departure Departure: Impression: Primary Impression: Menometrorrhagia Additional Impressions: Hypokalemia Chronic abdominal pain Nausea and vomiting Urinary tract infection Leukopenia Tobacco abuse Tobacco abuse counseling Disposition: HOME, SELF-CARE (at 1555) Condition: IMPROVED Referrals: ABHI GUILLEN APRN (PCP) Patient Instructions: Abdominal Pain, Abnormal Uterine Bleeding, Hypokalemia, Nausea and Vomiting, Smoking Cessation, Tips For Success, Urinary Tract Infection Additional Instructions: Drink plenty of liquids Follow-up with your primary care physician in 3-5 days Return to ER if not getting better Scripts Ondansetron Hcl (ZOFRAN) 4 Mg Tablet 1 TAB PO Q6HRS for nausea and vomiting, #12 TAB Prov: AYLIN KENNY MD 04/19/18 Naproxen (NAPROSYN) 500 Mg Tablet 500 MG PO BID for pain, #20 TAB Prov: AYLIN KENNY MD 04/19/18 Ciprofloxacin Hcl (CIPRO) 250 Mg Tablet 1 TAB PO BID for urinary tract infection, #14 TAB Prov: AYLIN KENNY MD 04/19/18 Problem Qualifiers AYLIN KENNY MD Apr 19, 2018 15:23
[2018-04-19 15:34] LABS: BARBITURATES NEG (NEG); BENZODIAZEPINES NEG (NEG); CANNABINOIDS NEG (NEG); COCAINE NEG (NEG); METHADONE NEG (NEG); OPIATES NEG (NEG); PHENCYCLIDINE NEG (NEG)
[2018-04-19 15:35] LABS: AMPHETAMINE/METHAMPHETAMINE NEG (NEG)
[2018-04-19] MEDS ORDERED: cefTRIAXone IV Push 1 GM VIAL. IVP ONE (15:41)
[2018-04-19] MEDS ORDERED: IV NORMAL SALINE 50ML 50 ML ONE (15:42)
[2018-04-19] MEDS ORDERED: cefTRIAXone SODIUM 1 GM VIAL IV ONE (15:43)
[2018-04-19] MEDS ORDERED: CIPR250T30 PO (15:55)
[2018-04-19] MEDS ORDERED: ONDA4TAB7 PO (15:55)
[2018-04-19] MEDS ORDERED: NAPR-683 PO (15:55)
[2018-04-19 16:18] VITALS: BP 100/43
== END 2018-04-19 16:24 | disposition home or self-care (01) ==
LOC: ER 12:49
DX: N92.1 Excessive and frequent menstruation with irregular cycle (principal); N39.0 Urinary tract infection, site not specified; E87.6 Hypokalemia; G89.29 Other chronic pain; R10.84 Generalized abdominal pain; R11.2 Nausea with vomiting, unspecified; D72.819 Decreased white blood cell count, unspecified; F17.210 Nicotine dependence, cigarettes, uncomplicated; Z86.2 Personal history of diseases of the blood and blood-forming organs and certain disorders involving the immune mechanism; Z71.6 Tobacco abuse counseling
CPT/HCPCS: 36415; 80053; 80307; 81001; 83690; 84703; 85025; 87086; 96361; 96365; 96375; 99283; J0696; J1885; J2405; J7030

== ENCOUNTER 2018-06-25 21:12 | Emergency (ER) | payer BC, OTHER ==
[~2018-06-25] VITALS: Ht 165.1 cm; Wt 61.2 kg
[~2018-06-25 21:12] MED LIST changes: -ALBU18HF IH; +ALBU2.5V8 IH; +CIPR250T30 PO; +HYDR-2155 PO; -HYDR-2758 PO; +NAPR-683 PO; +ONDA4TAB7 PO
--- NOTE | 2018-06-25 22:26 | PHYS DOC ---
Past History Past Medical History: Anemia, Seizure, Other Past Surgical History: No Surgical History Smoking: Cigarettes Alcohol Use: None Drug Use: None Adult General Chief Complaint Chief Complaint: TOE PROBLEM HPI HPI 22-year-old female presents with right middle toe pain. The patient was picking up one of her kids toys when the handle broke off and it fell and hit her toes. She had considerable pain. The patient looked at her foot and discovered that her right middle toenail was partially avulsed. She was also concerned about fracture so she came to the emergency room. She has pain second through fifth toes. She is able to walk. Her last tetanus shot was one year ago. She denies fever or chills. Review of Systems Review of Systems Constitutional: Denies fever or chills [] Eyes: Denies change in visual acuity, redness, or eye pain [] HENT: Denies nasal congestion or sore throat [] Respiratory: Denies cough or shortness of breath [] Cardiovascular: No additional information not addressed in HPI [] GI: Denies abdominal pain, nausea, vomiting, bloody stools or diarrhea [] : Denies dysuria or hematuria [] Musculoskeletal: Right foot pain[] Integument: Denies rash or skin lesions [] Neurologic: Denies headache, focal weakness or sensory changes [] Endocrine: Denies polyuria or polydipsia [] All other systems were reviewed and found to be within normal limits, except as documented in this note. Allergies Allergies Allergies Coded Allergies Type Severity Reaction Last Updated Verified No Known Drug Allergies 10/30/14 No Physical Exam Physical Exam Constitutional: Well developed, well nourished, no acute distress, non-toxic appearance. [] HENT: Normocephalic, atraumatic, bilateral external ears normal, oropharynx moist, no oral exudates, nose normal. [] Eyes: PERRLA, EOMI, conjunctiva normal, no discharge. [] Neck: Normal range of motion, no tenderness, supple, no stridor. [] Cardiovascular:Heart rate regular rhythm, no murmur [] Lungs & Thorax: Bilateral breath sounds clear to auscultation [] Abdomen: Bowel sounds normal, soft, no tenderness, no masses, no pulsatile masses. [] Skin: Warm, dry, no erythema, no rash. [] Back: No tenderness, no CVA tenderness. [] Extremities: Right middle toenail 98% avulsed. No ecchymosis or obvious deformity of the toes. Pain with palpation second through fifth digits.[] Neurologic: Alert and oriented X 3, normal motor function, normal sensory function, no focal deficits noted. [] Psychologic: Affect normal, judgement normal, mood normal. [] Current Patient Data Vital Signs Vital Signs Date Time Temp Pulse Resp B/P (MAP) Pulse Ox O2 Delivery O2 Flow Rate FiO2 06/25/18 21:15 Room Air EKG EKG [] Radiology/Procedures Radiology/Procedures [] Course & Med Decision Making Course & Med Decision Making Pertinent Labs and Imaging studies reviewed. (See chart for details) Patient's x-rays negative for fracture. The patient's toenail was barely hanging on by a small thread of tissue. I did remove it. The area was covered with a nonadherent dressing and new taped to the toe next to it. Place the patient on Keflex for a week of prophylaxis. The patient is stable for discharge at this time. [] Dragon Disclaimer Dragon Disclaimer This electronic medical record was generated, in whole or in part, using a voice recognition dictation system. Departure Departure: Impression: Primary Impression: Avulsion of toenail of right foot Disposition: HOME, SELF-CARE Condition: STABLE Referrals: ABHI GUILLEN APRN (PCP) Scripts Hydrocodone Bit/Acetaminophen (NORCO 5-325 TABLET) 1 Each Tablet 1 TAB PO PRN Q6HRS PRN for PAIN, #10 TAB 0 Refills Prov: JOSHUA JOLLEY DO 06/25/18 Cephalexin (KEFLEX) 500 Mg Capsule 1 CAP PO TID for infection, #21 CAP Prov: JOSHUA JOLLEY DO 06/25/18 JOSHUA JOLLEY DO Jun 25, 2018 22:26
[2018-06-25] MEDS ORDERED: CEPH-264 PO (22:29)
[2018-06-25] MEDS ORDERED: HYDROcodone/APAP 5/325MG 1 TAB TABLET PO ONE (22:30)
[2018-06-25] MEDS ORDERED: HYDR-3165 PO (22:30)
[2018-06-25] MEDS ORDERED: CEPHALEXIN 250 MG CAPSULE PO ONE (22:30)
[2018-06-25] MEDS ORDERED: CEPHALEXIN 250 MG CAPSULE ONE (22:48)
[2018-06-25] MEDS ORDERED: HYDROcodone/APAP 5/325MG 1 TAB TABLET ONE (22:48)
--- NOTE | 2018-06-26 08:23 | RAD ---
3 view study of the right foot Clinical indications: Third toe injury tonight. Nail damage with bleeding. FINDINGS: No acute fracture or dislocation or osteolytic process is seen. IMPRESSION: No acute fracture. Electronically signed by: Padilla Martinez MD (06/26/2018 8:19 AM) [facility]
== END 2018-06-25 22:55 | disposition home or self-care (01) ==
LOC: ER 21:12
DX: S91.204A Unspecified open wound of right lesser toe(s) with damage to nail, initial encounter (principal); F17.210 Nicotine dependence, cigarettes, uncomplicated; Z86.2 Personal history of diseases of the blood and blood-forming organs and certain disorders involving the immune mechanism; W20.8XXA Other cause of strike by thrown, projected or falling object, initial encounter; Y93.89 Activity, other specified; Y92.89 Other specified places as the place of occurrence of the external cause; Y99.8 Other external cause status
CPT/HCPCS: 11730; 73630; 99283

== ENCOUNTER 2018-08-22 18:42 | Emergency (ER) | payer BC, OTHER ==
[~2018-08-22] VITALS: Ht 167.6 cm; Wt 68.4 kg
[~2018-08-22 18:42] MED LIST changes: +CEPH-264 PO; +HYDR-3165 PO
[2018-08-22 19:43] LABS: BASO % 1 % (0-3); EOS # 0.1 x10^3/uL (0.0-0.7); EOS % 1 % (0-3); HEMATOCRIT 36.7 % (36.0-47.0); LYMPH # 1.7 x10^3/uL (1.0-4.8); LYMPH % 25 % (24-48); MEAN CORPUSCULAR HEMOGLOBIN 26 pg (25-35); MEAN CORPUSCULAR HGB CONC 33 g/dL (31-37); MEAN CORPUSCULAR VOLUME 80 fL (79-100); MONO # 0.5 x10^3/uL (0.0-1.1); MONO % 7 % (0-9); NEUT # 4.6 x10^3uL (1.8-7.7); NEUT % 67 % (31-73); PLATELET COUNT 313 x10^3/uL (140-400); RED BLOOD COUNT 4.58 x10^6/uL (3.50-5.40); RED CELL DISTRIBUTION WIDTH 14.5 % (11.5-14.5); WHITE BLOOD COUNT 6.9 x10^3/uL (4.0-11.0)
[2018-08-22] MEDS ORDERED: ONDANSETRON PF 4 MG/2 ML VIAL. IV ONE (19:45)
[2018-08-22] MEDS ORDERED: KETOROLAC 15 MG/ML VIAL. IV ONE (19:45)
[2018-08-22] MEDS ORDERED: IV NORMAL SALINE 1,000ML 1,000 ML IV ONE (19:45)
[2018-08-22] MEDS ORDERED: FAMOTIDINE 20 MG/2 ML VIAL IVP ONE (19:45)
[2018-08-22 19:53] LABS: ALBUMIN 3.9 g/dL (3.4-5.0); ALBUMIN/GLOBULIN RATIO 1.2 (1.0-1.7); CALCIUM 8.7 mg/dL (8.5-10.1); CREATININE 0.6 mg/dL (0.6-1.0); MAGNESIUM 1.9 mg/dL (1.8-2.4); POTASSIUM 3.9 mmol/L (3.5-5.1); TOTAL BILIRUBIN 0.3 mg/dL (0.2-1.0); TOTAL PROTEIN 7.2 g/dL (6.4-8.2)
--- NOTE | 2018-08-22 19:55 | PHYS DOC ---
Past History Past Medical History: Anemia, Seizure, Other Past Surgical History: No Surgical History Smoking: Cigarettes Alcohol Use: None Drug Use: None Adult General Chief Complaint Chief Complaint: VAGINAL BLEEDING HPI HPI Patient is a 23 year old female who presents to the ED with abnormal vaginal bleeding, abdominal pain, nausea, and vomiting. The abdominal pain, nausea, and vomiting are primarily what brought her to the ER. These symptoms started early today and she has vomited x3. She cannot keep food or drink down. Pt reports no new or unusual foods. Her abdominal pain is located in the epigastric and RLQ/ right adenexal regions. She mostly remarks on the RLQ pain which she ranks as a 4-7/10 intermittent crampy pain that does not radiate with no correlation to time of day. Pt has nexplanon implant x2 years. She used to not have periods x1 year and then started up with irregular 2 week periods. This last bleeding episode has lasted 1 month and gotten even worse in the last 2 weeks, and the pt has reported passing large blood clots during this timeframe. Denies concern for STDs. Denies trauma. Review of Systems Review of Systems Constitutional: Denies fever or chills [] Eyes: Denies change in visual acuity, redness, or eye pain [] HENT: Denies nasal congestion or sore throat [] Respiratory: Denies cough or shortness of breath [] Cardiovascular: Denies chest pain and palpitations. GI: Admits abdominal pain, nausea, vomiting. Denies bloody stools or diarrhea [] /SHOTWELD OPERATOR: Admits abnormal vaginal bleeding. Denies dysuria or hematuria [] Musculoskeletal: Denies back pain or joint pain [] Integument: Denies rash or skin lesions [] Neurologic: Denies headache, focal weakness or sensory changes [] Complete systems were reviewed and found to be within normal limits, except as documented in this note. Current Medications Current Medications Current Medications Medications (Trade) Dose Ordered Sig/[facility] Start Time Stop Time Status Last Admin Dose Admin Famotidine (Pepcid Vial) 20 mg 1X ONCE 08/22/18 19:45 08/22/18 19:46 DC 08/22/18 19:46 20 MG Ketorolac Tromethamine (Toradol 15mg Vial) 15 mg 1X ONCE 08/22/18 19:45 08/22/18 19:46 DC 08/22/18 19:46 15 MG Ondansetron HCl (Zofran) 4 mg 1X ONCE 08/22/18 19:45 08/22/18 19:46 DC 08/22/18 19:46 4 MG Sodium Chloride 1,000 ml @ 1,000 mls/hr 1X ONCE 08/22/18 19:45 08/22/18 20:44 08/22/18 19:46 1,000 MLS/HR Allergies Allergies Allergies Coded Allergies Type Severity Reaction Last Updated Verified No Known Drug Allergies 10/30/14 No Physical Exam Physical Exam Constitutional: Well developed, well nourished, no acute distress, non-toxic appearance. [] HENT: Normocephalic, atraumatic, nose normal. [] Eyes: PERRL, EOMI, conjunctiva normal, no discharge. [] Neck: Normal range of motion, no tenderness, supple, no stridor. [] Cardiovascular: Heart rate regular rhythm, no murmur [] Lungs & Thorax: Bilateral breath sounds clear to auscultation [] Abdomen: Soft. Tender to palpation epigastric, RLQ, and right adnexal region. No rebound tenderness. Negative Rg's sign Pelvic: Lan Manager RN, external genitalia normal, scant old blood noted in vaginal vault, cervical motion tenderness appreciated, right adnexal tenderness also appreciated, no significant discharge Skin: Warm, dry, no erythema, no rash. [] Back: No tenderness, no CVA tenderness. [] Extremities: No tenderness, no cyanosis, no clubbing, ROM intact, no edema. [] Neurologic: Alert and oriented, normal motor function, normal sensory function, no focal deficits noted. [] Psychologic: Affect normal, judgement normal, mood normal. [] Current Patient Data Lab Results Laboratory Tests Test 08/22/18 19:05 08/22/18 19:17 POC Urine HCG, Qualitative hcg negative (Negative) White Blood Count 6.9 x10^3/uL (4.0-11.0) Red Blood Count 4.58 x10^6/uL (3.50-5.40) Hemoglobin 12.0 g/dL (12.0-15.5) Hematocrit 36.7 % (36.0-47.0) Mean Corpuscular Volume 80 fL (79-100) Mean Corpuscular Hemoglobin 26 pg (25-35) Mean Corpuscular Hemoglobin Concent 33 g/dL (31-37) Red Cell Distribution Width 14.5 % (11.5-14.5) Platelet Count 313 x10^3/uL (140-400) Neutrophils (%) (Auto) 67 % (31-73) Lymphocytes (%) (Auto) 25 % (24-48) Monocytes (%) (Auto) 7 % (0-9) Eosinophils (%) (Auto) 1 % (0-3) Basophils (%) (Auto) 1 % (0-3) Neutrophils # (Auto) 4.6 x10^3uL (1.8-7.7) Lymphocytes # (Auto) 1.7 x10^3/uL (1.0-4.8) Monocytes # (Auto) 0.5 x10^3/uL (0.0-1.1) Eosinophils # (Auto) 0.1 x10^3/uL (0.0-0.7) Basophils # (Auto) 0.0 x10^3/uL (0.0-0.2) EKG EKG [] Radiology/Procedures Radiology/Procedures []PROCEDURE: US PELVIS W/TV Exam: Ultrasound pelvis INDICATION: Right lower quadrant pain. Last menstrual period was 07/28/2018. COMPARISON: None available. TECHNIQUE: Transabdominal and endovaginal sonography was performed FINDINGS: The uterus measures 9.3 x 4.5 x 4 point cm. The endometrium measures 0.5 cm on endovaginal images. There is no focal myometrial abnormality The right ovary measures 4.8 x 3.6 x 3.5 cm on endovaginal images. Right adnexal cystic structure measures 4.3 x 2.8 x 2.5 cm anechoic with thin internal septation. The left ovary measures 2.1 x 2.9 x 2 cm on endovaginal images. No left ovarian mass is seen. There is no free fluid. IMPRESSION: Right adnexal cystic structure is seen measuring up to 4.3 cm. Follow-up in 4-6 weeks is recommended. Otherwise normal sonographic survey of the pelvis. Electronically signed by: Kurtis Cummins MD (08/22/2018 9:31 PM) [facility] Course & Med Decision Making Course & Med Decision Making Pertinent Labs and Imaging studies reviewed. (See chart for details) Patient presents with report of right lower quadrant/right adnexal pain with report of menometrorrhagia. Pelvic exam performed with some blood noted in vaginal vault and additional cervical motion tenderness and right adnexal pain. Chlamydia/gonorrhea cultures pending. Patient elected to defer empiric antibiotic therapy. Wet mount negative. Labs obtained and posted to chart. Pelvic ultrasound noted to right ovarian cyst without signs of torsion. Symptomatic treatment provided with interval improvement of symptoms. Patient stable for discharge with outpatient follow-up with PCP/SHOTWELD OPERATOR. Discussed findings and plan with patient, who acknowledges understanding and agreement. Dragon Disclaimer Dragon Disclaimer This electronic medical record was generated, in whole or in part, using a voice recognition dictation system. Departure Departure: Impression: Primary Impression: Ovarian cyst Additional Impression: Menometrorrhagia Disposition: 01 HOME, SELF-CARE Condition: STABLE Referrals: ABHI GUILLEN APRN (PCP) Patient Instructions: Menorrhagia, [id number], Ovarian Cyst, [id number] Problem Qualifiers Primary Impression: Ovarian cyst Laterality: right Qualified Codes: N83.201 - Unspecified ovarian cyst, right side CIARA CRABTREE DO Aug 22, 2018 19:55
[2018-08-22 20:00] LABS: BACTERIA,URINE 0 /HPF (0-FEW); BILIRUBIN,URINE NEG (NEG); CLARITY,URINE CLOUDY; COLOR,URINE AMBER; GLUCOSE,URINE NEG (NEG); NITRITE,URINE NEG (NEG); UROBILINOGEN,URINE 0.2 mg/dL (0.2 mg/dL)
[2018-08-22 20:01] LABS: SQUAMOUS EPITHELIAL CELL,UR FEW /LPF
--- NOTE | 2018-08-22 21:34 | RAD ---
Exam: Ultrasound pelvis INDICATION: Right lower quadrant pain. Last menstrual period was 07/28/2018. COMPARISON: None available. TECHNIQUE: Transabdominal and endovaginal sonography was performed FINDINGS: The uterus measures 9.3 x 4.5 x 4 point cm. The endometrium measures 0.5 cm on endovaginal images. There is no focal myometrial abnormality The right ovary measures 4.8 x 3.6 x 3.5 cm on endovaginal images. Right adnexal cystic structure measures 4.3 x 2.8 x 2.5 cm anechoic with thin internal septation. The left ovary measures 2.1 x 2.9 x 2 cm on endovaginal images. No left ovarian mass is seen. There is no free fluid. IMPRESSION: Right adnexal cystic structure is seen measuring up to 4.3 cm. Follow-up in 4-6 weeks is recommended. Otherwise normal sonographic survey of the pelvis. Electronically signed by: Kurtis Cummins MD (08/22/2018 9:31 PM) [facility]
[2018-08-22 22:48] VITALS: BP 107/55
[2018-08-24 14:11] LABS: CHLAMYDIA PROBE Negative (Negative)
== END 2018-08-22 23:10 | disposition home or self-care (01) ==
LOC: ER 18:42
DX: N83.201 Unspecified ovarian cyst, right side (principal); N92.1 Excessive and frequent menstruation with irregular cycle; R11.2 Nausea with vomiting, unspecified; F17.210 Nicotine dependence, cigarettes, uncomplicated; Z86.2 Personal history of diseases of the blood and blood-forming organs and certain disorders involving the immune mechanism
CPT/HCPCS: 36415; 76830; 76856; 80053; 81001; 81025; 83690; 83735; 85025; 87086; 87491; 87591; 96361; 96374; 96375; 99284; J1885; J2405; J3490; Q0111; J7030

== ENCOUNTER 2018-11-17 09:06 | Emergency (ER) | payer BC, OTHER ==
[2018-11-17] MEDS ORDERED: SUMAtriptan SUCC 6 MG/0.5 ML VIAL SQ ONE (10:00)
[2018-11-17] MEDS ORDERED: KETOROLAC 60 MG/2 ML VIAL. IM ONE (10:00)
[2018-11-17] MEDS ORDERED: METOCLOPRAMIDE HCL 10 MG/2 ML VIAL. IM ONE (10:00)
[2018-11-17 10:22] LABS: BILIRUBIN,URINE NEG (NEG); CLARITY,URINE BLOODY; COLOR,URINE RED; GLUCOSE,URINE NEG (NEG); UROBILINOGEN,URINE 0.2 mg/dL (0.2 mg/dL)
[2018-11-17 10:23] LABS: BACTERIA,URINE 0 /HPF (0-FEW); RBC,URINE >40 /HPF (0-2); SQUAMOUS EPITHELIAL CELL,UR OCC /LPF
[2018-11-17] MEDS ORDERED: BUTA1CAP31 PO (10:42)
[2018-11-17] MEDS ORDERED: ONDA4TAB7 PO (10:42)
--- NOTE | 2018-11-17 10:42 | PHYS DOC ---
Past History Past Medical History: Anemia, Seizure, Other Past Surgical History: No Surgical History Smoking: Cigarettes Alcohol Use: None Drug Use: None Adult General Chief Complaint Chief Complaint: MULTIPLE COMPLAINTS HPI HPI Patient is a 23-year-old female who presents with complaint of right-sided frontal/temporal headache that started last night. She rates pain as fairly severe and describes the pain as a throbbing/pounding pain in her head. She admits to photophobia and states that she has had some nausea and vomiting. Patient is also concerned because she is noted that she has had very dark blood in her most recent menstrual cycle and passing some clots. Patient is on implanted control. She denies any fever, chest pain or shortness of breath. She also denies any visual changes.[] Review of Systems Review of Systems Constitutional: Denies fever or chills [] Eyes: Denies change in visual acuity, redness, or eye pain [] Respiratory: Denies cough or shortness of breath [] Cardiovascular: No additional information not addressed in HPI [] GI: Denies abdominal pain. Admits to nausea and vomiting without diarrhea [] : Positive vaginal bleeding[] Neurologic: Positive headache without focal weakness or sensory changes [] All other systems were reviewed and found to be within normal limits, except as documented in this note. Current Medications Current Medications Current Medications Medications (Trade) Dose Ordered Sig/Reynaldo Start Time Stop Time Status Last Admin Dose Admin Ketorolac Tromethamine (Toradol Im) 60 mg 1X ONCE 11/17/18 10:00 11/17/18 10:01 DC 11/17/18 09:49 60 MG Metoclopramide HCl (Reglan Vial) 10 mg 1X ONCE 11/17/18 10:00 11/17/18 10:01 DC 11/17/18 09:49 10 MG Sumatriptan Succinate (Imitrex) 6 mg 1X ONCE 11/17/18 10:00 11/17/18 10:01 DC 11/17/18 09:49 6 MG Allergies Allergies Allergies Coded Allergies Type Severity Reaction Last Updated Verified No Known Drug Allergies 10/30/14 No Physical Exam Physical Exam Constitutional: Well developed, well nourished, no acute distress, non-toxic appearance. [] HENT: Normocephalic, atraumatic, bilateral external ears normal, oropharynx moist, no oral exudates, nose normal. [] Eyes: PERRLA, EOMI, conjunctiva normal, no discharge. [] Neck: Normal range of motion, no tenderness, supple, no stridor. [] Cardiovascular:Heart rate regular rhythm, no murmur [] Lungs & Thorax: Bilateral breath sounds clear to auscultation [] Abdomen: Bowel sounds normal, soft, no tenderness. [] Skin: Warm, dry, no erythema, no rash. [] Extremities: No tenderness, no cyanosis, no clubbing, ROM intact, no edema. [] Neurologic: Alert and oriented X 3, no focal deficits noted. [] Current Patient Data Lab Results Laboratory Tests Test 11/17/18 09:40 Urine Collection Type Unknown Urine Color Red Urine Clarity Bloody Urine pH 6.5 Urine Specific [place] 1.010 Urine Protein >100 mg/dl (NEG-TRACE) Urine Glucose (UA) Neg mg/dL (NEG) Urine Ketones (Stick) Neg mg/dL (NEG) Urine Blood Large (NEG) Urine Nitrite (NEG) Urine Bilirubin Neg (NEG) Urine Urobilinogen Dipstick 0.2 mg/dL (0.2 mg/dL) Urine Leukocyte Esterase Neg (NEG) Urine RBC >40 /HPF (0-2) Urine WBC 1-4 /HPF (0-4) Urine Squamous Epithelial Cells Occ /LPF Urine Bacteria 0 /HPF (0-FEW) EKG EKG [] Radiology/Procedures Radiology/Procedures [] Course & Med Decision Making Course & Med Decision Making Pertinent Labs and Imaging studies reviewed. (See chart for details) [] Dragon Disclaimer Dragon Disclaimer This electronic medical record was generated, in whole or in part, using a voice recognition dictation system. Departure Departure: Impression: Primary Impression: Migraine headache Additional Impression: Menorrhagia Disposition: HOME, SELF-CARE Condition: STABLE Referrals: ABHI GUILLEN APRN (PCP) Patient Instructions: Menorrhagia, Migraine Headache Scripts Ondansetron Hcl (ZOFRAN) 4 Mg Tablet 4 MG PO Q6HRS PRN for NAUSEA, #12 TAB Prov: ROZ KIMBALL Jr. DO 11/17/18 Butalbital/Aspirin/Caffeine (FIORINAL 50-325-40 MG CAPSULE) 1 Each Capsule 1 EACH PO Q6HRS PRN for HEADACHE, #20 CAP Prov: ROZ KIMBALL Jr. DO 11/17/18 Problem Qualifiers Primary Impression: Migraine headache Migraine type: unspecified Status migrainosus presence: without status migrainosus Intractability: not intractable Qualified Codes: G43.909 - Migraine, unspecified, not intractable, without status migrainosus Additional Impression: Menorrhagia Menorrahagia type: with regular cycle Qualified Codes: N92.0 - Excessive and frequent menstruation with regular cycle ROZ KIMBALL Jr., DO Nov 17, 2018 10:42
[2018-11-17 11:00] VITALS: BP 109/73
== END 2018-11-17 11:00 | disposition home or self-care (01) ==
LOC: ER 09:06
DX: G43.909 Migraine, unspecified, not intractable, without status migrainosus (principal); N92.0 Excessive and frequent menstruation with regular cycle; F17.210 Nicotine dependence, cigarettes, uncomplicated; Z86.2 Personal history of diseases of the blood and blood-forming organs and certain disorders involving the immune mechanism
CPT/HCPCS: 81001; 96372; 99284; J1885; J2765; J3030

== ENCOUNTER 2019-10-04 03:20 | Emergency (ER) | payer BC, MEDICAID, OTHER ==
[~2019-10-04] VITALS: Ht 167.6 cm; Wt 68.4 kg
[~2019-10-04 03:20] MED LIST changes: +BUTA1CAP31 PO
--- NOTE | 2019-10-04 03:30 | PHYS DOC ---
Past History Past Medical History: No Pertinent History Past Surgical History: No Surgical History Smoking: Cigarettes Alcohol Use: None Drug Use: None General Adult EDM: Chief Complaint: DENTAL PROBLEM HPI: HPI: Patient is a 24 year old female who presents with above hx and complaints of dental pain of all her front teeth both upper and lower. Patient has extensive gingivitis and dental decay. No pointing abscess appreciated. No trismus. Patient denies history of immunosuppression. Patient denies any recent travel outside the [place] area. Patient states she has not been able to see her dentist because he is on vacation. Patient states she is tried Tylenol and ibuprofen at home. Patient reports the pain is much worse tonight. Patient did drive herself. Pt. follows with Milagro Guillen for care. Review of Systems: Review of Systems: Constitutional: Denies fever or chills Eyes: Denies change in visual acuity HENT: Denies nasal congestion or sore throat. Patient complains of generalized dental pain Respiratory: Denies cough or shortness of breath Cardiovascular: Denies chest pain or edema GI: Denies abdominal pain, nausea, vomiting, bloody stools or diarrhea : Denies dysuria Musculoskeletal: Denies back pain or joint pain Integument: Denies rash Neurologic: Denies headache, focal weakness or sensory changes Endocrine: Denies polyuria or polydipsia Lymphatic: Denies swollen glands Psychiatric: Denies depression or anxiety Heart Score: Risk Factors: Risk Factors: DM, Current or recent (<one month) smoker, HTN, HLP, family history of CAD, obesity. Risk Scores: Score 0 - 3: 2.5% MACE over next 6 weeks - Discharge Home Score 4 - 6: 20.3% MACE over next 6 weeks - Admit for Clinical Observation Score 7 - 10: 72.7% MACE over next 6 weeks - Early Invasive Strategies Family History: Family History: Noncontributory to presentation Current Medications: Current Meds: See nursing for home meds Allergies: Allergies: Allergies Coded Allergies Type Severity Reaction Last Updated Verified No Known Drug Allergies 10/30/14 No Physical Exam: PE: Constitutional: Reports acute distress, non-toxic appearance. [] Purple hair HENT: Normocephalic, atraumatic, bilateral external ears normal, oropharynx moist, no oral exudates, nose normal. Extensive dental decay throughout her mouth. Patient localizes pain primary Chris through teeth 6 through 10 and 27 through 22. Extensive gingivitis Eyes: PERRLA, EOMI, conjunctiva normal, no discharge. [] Neck: Normal range of motion, no tenderness, supple, no stridor. [] Cardiovascular:Heart rate regular rhythm, no murmur [] Lungs & Thorax: Bilateral breath sounds equal apex with scattered wheezes auscultation [] Abdomen: Bowel sounds normal, soft, no tenderness, no masses, no pulsatile masses. [] Skin: Warm, dry, no erythema, no rash. Tattoos Back: No tenderness, no CVA tenderness. [] Extremities: No tenderness, no cyanosis, no clubbing, ROM intact, no edema. [] Neurologic: Alert and oriented X 3, normal motor function, normal sensory function, no focal deficits noted. [] Psychologic: Affect anxious, judgement normal, mood normal. [] EKG: EKG: [] Radiology/Procedures: Radiology/Procedures: [] Course & Med Decision Making: Course & Med Decision Making Pertinent Labs and Imaging studies reviewed. (See chart for details) Patient 4 times a day. Patient breast-feeding. Patient encouraged to follow-up with dentist. Advised patient nothing we do tonight will fix her underlying problem and must see dentist for dental repair or extractions. Patient to Keflex 500 mg 3 times a day. If marked pain may take Percocet up to 4 times a day. Narcotic abuse and warning given. Must follow-up with dentist. Impression: 1. Dental pain 2. Extensive dental decay and gingivitis 3. Tobacco abuse [] Dragon Disclaimer: Maria Antonia Disclaimer: This electronic medical record was generated, in whole or in part, using a voice recognition dictation system. Departure Departure: Disposition: 01 HOME/RESIDENCE PRIOR TO ADM Condition: STABLE Referrals: MILAGRO GUILLEN APRN (PCP) Scripts Oxycodone HCl/Acetaminophen (Percocet 5-325 mg Tablet) 1 Each Tablet 1 TAB PO PRN QID PRN for dental pain MDD 4 Tablet(s) for 30 Days, #30 TAB 0 Refills Prov: EMILIA MASCORRO MD 10/04/19 Cephalexin (KEFLEX) 500 Mg Capsule 500 MG PO TID for dental decay, abscess, #30 BOTTLE Prov: EMILIA MASCORRO MD 10/04/19 EMILIA MASCORRO MD October 04, 2019 03:30
[2019-10-04 03:33] VITALS: BP 105/68
[2019-10-04] MEDS ORDERED: CEPHALEXIN 250 MG CAPSULE PO ONE (03:45)
[2019-10-04] MEDS ORDERED: CEPH-264 PO (03:46)
[2019-10-04] MEDS ORDERED: OXYC-325 PO (03:46)
[2019-10-04] MEDS ORDERED: CEPHALEXIN 250 MG CAPSULE ONE (03:53)
== END 2019-10-04 04:00 | disposition home or self-care (01) ==
LOC: ER 03:20
DX: K08.89 Other specified disorders of teeth and supporting structures (principal); K05.10 Chronic gingivitis, plaque induced; K02.9 Dental caries, unspecified; F17.210 Nicotine dependence, cigarettes, uncomplicated
CPT/HCPCS: 99283

== ENCOUNTER 2019-11-22 16:06 | Emergency (ER) | payer MEDICAID ==
[~2019-11-22] VITALS: Ht 162.6 cm; Wt 40.3 kg
[~2019-11-22 16:06] MED LIST changes: +OXYC-325 PO
[2019-11-22] MEDS ORDERED: ONDANSETRON PF 4 MG/2 ML VIAL. IVP ONE (16:15)
[2019-11-22] MEDS ORDERED: IV NORMAL SALINE 1,000ML 1,000 ML IV ONE (16:15)
[2019-11-22] MEDS ORDERED: FAMOTIDINE 20 MG/2 ML VIAL IVP ONE (16:15)
[2019-11-22 16:17] VITALS: BP 116/59
[2019-11-22 16:52] LABS: BASO % 0 % (0-3); EOS # 0.1 x10^3/uL (0.0-0.7); EOS % 1 % (0-3); HEMATOCRIT 37.2 % (36.0-47.0); HEMOGLOBIN 12.3 g/dL (12.0-15.5); LYMPH # 1.4 x10^3/uL (1.0-4.8); LYMPH % 16 % (24-48); MEAN CORPUSCULAR HEMOGLOBIN 28 pg (25-35); MEAN CORPUSCULAR HGB CONC 33 g/dL (31-37); MEAN CORPUSCULAR VOLUME 84 fL (79-100); MONO # 0.5 x10^3/uL (0.0-1.1); MONO % 6 % (0-9); NEUT # 6.4 x10^3uL (1.8-7.7); NEUT % 76 % (31-73); PLATELET COUNT 273 x10^3/uL (140-400); RED BLOOD COUNT 4.41 x10^6/uL (3.50-5.40); RED CELL DISTRIBUTION WIDTH 15.2 % (11.5-14.5); WHITE BLOOD COUNT 8.4 x10^3/uL (4.0-11.0)
[2019-11-22 16:55] LABS: CREATININE 0.6 mg/dL (0.6-1.0); GFR 123.9; POTASSIUM 3.6 mmol/L (3.5-5.1)
[2019-11-22 17:01] LABS: ALBUMIN 3.9 g/dL (3.4-5.0); MAGNESIUM 1.9 mg/dL (1.8-2.4); TOTAL BILIRUBIN 0.4 mg/dL (0.2-1.0); TOTAL PROTEIN 7.7 g/dL (6.4-8.2)
[2019-11-22 17:55] LABS: BARBITURATES NEG (NEG); BENZODIAZEPINES NEG (NEG); CANNABINOIDS NEG (NEG); COCAINE NEG (NEG); METHADONE NEG (NEG); OPIATES NEG (NEG); PHENCYCLIDINE NEG (NEG)
[2019-11-22 17:56] LABS: BILIRUBIN,URINE NEG (NEG); CLARITY,URINE CLOUDY; COLOR,URINE YELLOW; GLUCOSE,URINE NEG (NEG); NITRITE,URINE POS (NEG); RBC,URINE OCC /HPF (0-2); UROBILINOGEN,URINE 0.2 mg/dL (0.2 mg/dL)
[2019-11-22 17:57] LABS: AMPHETAMINE/METHAMPHETAMINE NEG (NEG); BACTERIA,URINE MANY /HPF (0-FEW); SQUAMOUS EPITHELIAL CELL,UR MOD /LPF
[2019-11-22] MEDS ORDERED: ONDA4TAB12 PO (18:21)
[2019-11-22] MEDS ORDERED: CEPH-264 PO (18:21)
--- NOTE | 2019-11-22 18:21 | PHYS DOC ---
Past History Past Medical History: No Pertinent History Past Surgical History: No Surgical History Smoking: Cigarettes Alcohol Use: None Drug Use: None General Adult EDM: Chief Complaint: NAUSEA/VOMITING/DIARRHEA HPI: HPI: Patient is a [age] year old [sex] who presents with [] Review of Systems: Review of Systems: Constitutional: Denies fever or chills Eyes: Denies redness or eye pain HENT: Denies nasal congestion or sore throat Respiratory: Denies cough or shortness of breath Cardiovascular: Denies chest pain or palpitations GI: Denies abdominal pain, nausea, or vomiting : Denies dysuria or hematuria Musculoskeletal: Denies back pain or joint pain Integument: Denies rash or skin lesions Neurologic: Denies headache, focal weakness or sensory changes Complete systems were reviewed and found to be within normal limits, except as documented in this note. Heart Score: Risk Factors: Risk Factors: DM, Current or recent (<one month) smoker, HTN, HLP, family history of CAD, obesity. Risk Scores: Score 0 - 3: 2.5% MACE over next 6 weeks - Discharge Home Score 4 - 6: 20.3% MACE over next 6 weeks - Admit for Clinical Observation Score 7 - 10: 72.7% MACE over next 6 weeks - Early Invasive Strategies Current Medications: Current Meds: Current Medications Medications (Trade) Dose Ordered Sig/Reynaldo Start Time Stop Time Status Last Admin Dose Admin Ceftriaxone Sodium 1 gm/ Sodium Chloride 50 ml @ 100 mls/hr 1X ONCE 11/22/19 18:15 11/22/19 18:44 UNV Famotidine (Pepcid Vial) 20 mg 1X ONCE 11/22/19 16:15 11/22/19 16:18 DC 11/22/19 16:41 20 MG Ondansetron HCl (Zofran) 4 mg 1X ONCE 11/22/19 16:15 11/22/19 16:18 DC 11/22/19 16:41 4 MG Sodium Chloride 1,000 ml @ 1,000 mls/hr 1X ONCE 11/22/19 16:15 11/22/19 17:14 DC 11/22/19 16:15 1,000 MLS/HR Allergies: Allergies: Allergies Coded Allergies Type Severity Reaction Last Updated Verified No Known Drug Allergies 10/30/14 No Physical Exam: PE: Constitutional: Well developed, well nourished, no acute distress, non-toxic appearance HENT: Normocephalic, atraumatic, oropharynx moist Eyes: PERRL, EOMI, conjunctiva normal, no discharge Neck: Normal range of motion, no tenderness, supple Cardiovascular: Heart rate normal, regular rhythm Lungs & Thorax: Bilateral breath sounds clear to auscultation, no wheezing Abdomen: Soft, no tenderness Skin: Warm, dry, no erythema, no rash Back: No tenderness, no CVA tenderness Extremities: No tenderness, ROM intact, no edema Neurologic: Alert and oriented X 3, normal motor function, normal sensory function, no focal deficits noted Psychologic: Affect normal, judgment normal Current Patient Data: Labs: Laboratory Tests Test 11/22/19 16:30 11/22/19 17:25 White Blood Count 8.4 x10^3/uL (4.0-11.0) Red Blood Count 4.41 x10^6/uL (3.50-5.40) Hemoglobin 12.3 g/dL (12.0-15.5) Hematocrit 37.2 % (36.0-47.0) Mean Corpuscular Volume 84 fL (79-100) Mean Corpuscular Hemoglobin 28 pg (25-35) Mean Corpuscular Hemoglobin Concent 33 g/dL (31-37) Red Cell Distribution Width 15.2 % (11.5-14.5) H Platelet Count 273 x10^3/uL (140-400) Neutrophils (%) (Auto) 76 % (31-73) H Lymphocytes (%) (Auto) 16 % (24-48) L Monocytes (%) (Auto) 6 % (0-9) Eosinophils (%) (Auto) 1 % (0-3) Basophils (%) (Auto) 0 % (0-3) Neutrophils # (Auto) 6.4 x10^3uL (1.8-7.7) Lymphocytes # (Auto) 1.4 x10^3/uL (1.0-4.8) Monocytes # (Auto) 0.5 x10^3/uL (0.0-1.1) Eosinophils # (Auto) 0.1 x10^3/uL (0.0-0.7) Basophils # (Auto) 0.0 x10^3/uL (0.0-0.2) Maternal Serum HCG Beta Subunit 579897 mIU/mL (0-6) H Sodium Level 137 mmol/L (136-145) Potassium Level 3.6 mmol/L (3.5-5.1) Chloride Level 102 mmol/L (98-107) Carbon Dioxide Level 26 mmol/L (21-32) Anion Gap 9 (6-14) Blood Urea Nitrogen 7 mg/dL (7-20) Creatinine 0.6 mg/dL (0.6-1.0) Estimated GFR (Cockcroft-Gault) 123.9 BUN/Creatinine Ratio 12 (6-20) Glucose Level 91 mg/dL (70-99) Calcium Level 9.0 mg/dL (8.5-10.1) Magnesium Level 1.9 mg/dL (1.8-2.4) Total Bilirubin 0.4 mg/dL (0.2-1.0) Aspartate Amino Transferase (AST) 14 U/L (15-37) L Alanine Aminotransferase (ALT) 24 U/L (14-59) Alkaline Phosphatase 63 U/L (46-116) Total Protein 7.7 g/dL (6.4-8.2) Albumin 3.9 g/dL (3.4-5.0) Albumin/Globulin Ratio 1.0 (1.0-1.7) Lipase 109 U/L (73-393) Urine Collection Type Unknown Urine Color Yellow Urine Clarity Cloudy Urine pH 6.5 Urine Specific [place] 1.025 Urine Protein Neg (NEG-TRACE) Urine Glucose (UA) Neg mg/dL (NEG) Urine Ketones (Stick) 15 mg/dL (NEG) Urine Blood Neg (NEG) Urine Nitrite Pos (NEG) Urine Bilirubin Neg (NEG) Urine Urobilinogen Dipstick 0.2 mg/dL (0.2 mg/dL) Urine Leukocyte Esterase Small (NEG) Urine RBC Occ /HPF (0-2) Urine WBC 11-20 /HPF (0-4) Urine Squamous Epithelial Cells Mod /LPF Urine Bacteria Many /HPF (0-FEW) Urine Mucus Slight /LPF Urine Opiates Screen Neg (NEG) Urine Methadone Screen Neg (NEG) Urine Barbiturates Neg (NEG) Urine Phencyclidine Screen Neg (NEG) Urine Amphetamine/Methamphetamine Neg (NEG) Urine Benzodiazepines Screen Neg (NEG) Urine Cocaine Screen Neg (NEG) Urine Cannabinoids Screen Neg (NEG) Urine Ethyl Alcohol Neg (NEG) Vital Signs: Vital Signs Date Time Temp Pulse Resp B/P (MAP) Pulse Ox O2 Delivery O2 Flow Rate FiO2 11/22/19 16:17 98.1 96 16 116/59 (78) 98 Room Air EKG: EKG: [] Radiology/Procedures: Radiology/Procedures: [] Course & Med Decision Making: Course & Med Decision Making Pertinent Labs and Imaging studies reviewed. (See chart for details) Patient stable for discharge with outpatient follow-up with PCP. Discussed findings and plan with patient, who acknowledges understanding and agreement. Dragon Disclaimer: GuestShots Disclaimer: This electronic medical record was generated, in whole or in part, using a voice recognition dictation system. Departure Departure: Impression: Primary Impression: Nausea and vomiting during Additional Impression: Urinary tract infection Qualified Codes: N30.00 - Acute cystitis without hematuria Disposition: HOME/RESIDENCE PRIOR TO ADM Condition: STABLE Referrals: ABHI GUILLEN APRN (PCP) Patient Instructions: ABCs of , Clear Liquid Diet, [id number]-[id number], Morning Sickness, Urqd-ri-[id number] Scripts Cephalexin (KEFLEX) 500 Mg Capsule 1 CAP PO TID for UTI for 7 Days, #21 CAP 0 Refills Prov: CIARA CRABTREE DO 11/22/19 Ondansetron (ONDANSETRON ODT) 4 Mg Tab.rapdis 1 TAB PO PRN Q6-8HRS PRN for NAUSEA, #16 TAB Prov: CIARA CRABTREE DO 11/22/19 Justification of Admission: Justification of Admission: Justification of Admission Dx: N/A CIARA CRABTREE DO Nov 22, 2019 18:21
== END 2019-11-22 18:28 | disposition home or self-care (01) ==
LOC: ER 16:06
DX: O23.11 Infections of bladder in pregnancy, first trimester (principal); R11.2 Nausea with vomiting, unspecified; O99.331 Smoking (tobacco) complicating pregnancy, first trimester; F17.210 Nicotine dependence, cigarettes, uncomplicated; Z3A.08 8 weeks gestation of pregnancy
CPT/HCPCS: 36415; 80053; 80307; 81001; 83690; 83735; 84702; 85025; 87086; 96361; 96374; 96375; 99284; J2405; J3490; J7030

== ENCOUNTER 2019-12-26 21:34 | Emergency (ER) | payer MEDICAID ==
[~2019-12-26] VITALS: Ht 162.6 cm; Wt 70.0 kg
[2019-12-26 21:34] VITALS: BP 119/59
[~2019-12-26 21:34] MED LIST changes: +ONDA4TAB12 PO
[2019-12-26] MEDS ORDERED: BUPIVACAINE MPF 0.25% 10 ML VIAL. ONE (21:52)
[2019-12-26] MEDS ORDERED: BUPIVACAINE MPF 0.25% 10 ML VIAL. IJ ONE ×2 (22:00→22:45)
[2019-12-26] MEDS ORDERED: DIPH,PERTUSS(ACELL),TET VAC/PF 0.5 ML SYRINGE. VAX IM ONE (22:15)
--- NOTE | 2019-12-26 22:18 | PHYS DOC ---
Past History Past Medical History: No Pertinent History Past Surgical History: No Surgical History Smoking: Quit Less Than 1 Year Alcohol Use: None Drug Use: None General Adult EDM: Chief Complaint: TOE PROBLEM HPI: HPI: The history was obtained from the patient. Patient is a 21-year-old female with no reported PMH who presents with a chief complaint of left great toe injury. Patient states 1 minutes prior to arrival walking in sandals she stubbed her great left toe. She noted immediate bleeding from underneath the toenail. She states it is painful to bear weight on the left toe. States the pain is sharp and aching in nature. She states nothing seems to help the pain. She states the pain is constant. She denies any ankle or foot pain. Unknown last tetanus. No other complaints. Review of Systems: Review of Systems: Constitutional: Denies fever or chills Eyes: Denies change in visual acuity HENT: Denies nasal congestion or sore throat Respiratory: Denies cough or shortness of breath Cardiovascular: Denies chest pain or edema GI: Denies abdominal pain, nausea, vomiting, bloody stools or diarrhea : Denies dysuria Musculoskeletal: Positive for foot pain Integument: Denies rash Neurologic: Denies headache, focal weakness or sensory changes Endocrine: Denies polyuria or polydipsia Lymphatic: Denies swollen glands Psychiatric: Denies depression or anxiety Heart Score: Risk Factors: Risk Factors: DM, Current or recent (<one month) smoker, HTN, HLP, family history of CAD, obesity. Risk Scores: Score 0 - 3: 2.5% MACE over next 6 weeks - Discharge Home Score 4 - 6: 20.3% MACE over next 6 weeks - Admit for Clinical Observation Score 7 - 10: 72.7% MACE over next 6 weeks - Early Invasive Strategies Current Medications: Current Meds: Current Medications Medications (Trade) Dose Ordered Sig/Reynaldo Start Time Stop Time Status Last Admin Dose Admin Bupivacaine HCl (Sensorcaine-Mpf 0.25%) 10 ml STK-MED ONCE 12/26/19 21:52 12/26/19 21:53 DC Allergies: Allergies: Allergies Coded Allergies Type Severity Reaction Last Updated Verified No Known Drug Allergies 10/30/14 No Physical Exam: PE: Constitutional: Well developed, well nourished, no acute distress, non-toxic appearance. [] HENT: Normocephalic, atraumatic, bilateral external ears normal, oropharynx moist, no oral exudates, nose normal. [] Eyes: PERRLA, EOMI, conjunctiva normal, no discharge. [] Neck: Normal range of motion, no tenderness, supple, no stridor. [] Cardiovascular:Heart rate regular rhythm, no murmur [] Lungs & Thorax: Bilateral breath sounds clear to auscultation [] Abdomen: , soft, no tenderness, no masses, no pulsatile masses. [] Skin: Warm, dry, no erythema, no rash. [] Back: No tenderness, no CVA tenderness. [] Extremities: Left great toe with tenderness to palpation over the distal phalanx. No ecchymosis noted. Blood noted underneath the nail bed. No nail laceration or avulsion appreciated. Neurologic: Alert and oriented X 3, normal motor function, normal sensory function, no focal deficits noted. [] Psychologic: Affect normal, judgement normal, mood normal. [] Current Patient Data: Vital Signs: Vital Signs Date Time Temp Pulse Resp B/P (MAP) Pulse Ox O2 Delivery O2 Flow Rate FiO2 12/26/19 21:34 98.6 101 18 119/59 (79) 99 Room Air EKG: EKG: [] Radiology/Procedures: Radiology/Procedures: Indication: rule out nailbed laceration Procedure: The patient was placed in the appropriate position and anesthesia around the left great toe. Digital nerve block was performed of the left great toe. 0.25% bupivacaine with epinephrine was used. Approximately 5 mL. The area was then cleaned thoroughly with normal saline and iodine. The nail was gently pulled back for thorough evaluation. No signs of nailbed laceration. Underneath the nailbed was irrigated with copious amounts of normal saline. The nail bed was not removed from the germinal matrix during evaluationThe wound area was then dressed with bacitracin. The patient tolerated the procedure well. Complications: None.[] Course & Med Decision Making: Course & Med Decision Making Pertinent Labs and Imaging studies reviewed. (See chart for details) Patient is a well-appearing 24-year-old female who presents with chief complaint of left great toe injury. States she stubbed her toe while walking 20 minutes prior to arrival. Physical exam notable for a tender and swollen left great toe. Blood was noted underneath the nailbed and the distal portion of the toenail. Digital nerve block was performed. Toenail was gently pulled back and thoroughly examined. No signs of nailbed laceration. Copious irrigation was performed underneath the nailbed which did reveal follow the blood. X-ray was obtained with consent given the patient's status and as read by me shows no underlying fracture. Nailbed was not completely removed from the germinal matrix. Patient was provided a postop shoe for walking. She was encouraged to use Tylenol for treating her pain. Tetanus was updated. Return precautions discussed and understood. Stable for discharge home. Maria Antonia Disclaimer: Maria Antonia Disclaimer: This electronic medical record was generated, in whole or in part, using a voice recognition dictation system. Departure Departure: Disposition: 01 HOME/RESIDENCE PRIOR TO ADM Condition: GOOD Referrals: ABHI GUILLEN APRN (PCP) Patient Instructions: Fingernail or Toenail Loss Justification of Admission: Justification of Admission: Justification of Admission Dx: N/A CHRIS VALLE DO Dec 26, 2019 22:18
--- NOTE | 2019-12-26 22:44 | RAD ---
EXAM: 3 views left great toe DATE: 12/26/2019 9:47 PM INDICATION: Left great toe injury. COMPARISON: No Prior FINDINGS: Mild soft tissue swelling with left great toe. No acute fracture or dislocation. Joint spaces are grossly preserved. IMPRESSION: No evidence of acute fracture or dislocation. If there is persistent clinical concern for fracture, follow-up radiographs in 10-14 days is recommended. Electronically signed by: Kurtis Cummins MD (12/26/2019 10:41 PM) [facility]
== END 2019-12-26 22:50 | disposition home or self-care (01) ==
LOC: ER 21:34
DX: S99.922A Unspecified injury of left foot, initial encounter (principal); Z87.891 Personal history of nicotine dependence; W22.8XXA Striking against or struck by other objects, initial encounter; Y93.89 Activity, other specified; Y92.89 Other specified places as the place of occurrence of the external cause; Y99.8 Other external cause status
CPT/HCPCS: 64450; 73660; 99284; J3490